=== PATIENT | male | born 1945 | race Caucasian/White ===

== ENCOUNTER 2018-02-23 06:15 | Inpatient (IN) ==
--- NOTE | 2018-02-18 10:09 | Anesthesiology Consultation ---
Date of Service February 18, 2018 Assessment & Plan (1) Encounter for pre-operative examination: Chart Review Chart Review: Acceptable Risk for Surgery and Patient NOT seen in Pre Admission Testing Consults Requested none History Surgery Operation Date: 02/23/18 09:30 Proposed Procedures p Laparoscopic Right Hemicolectomy - Rey Robb DO, FACS Height/Weight Height: 5 ft 10 in Weight: 97.069 kg Allergies Allergy/AdvReac Type Severity Reaction Status Date / Time No Known Allergies Allergy Verified 02/17/18 13:39 Medications Home Medications Medication Instructions Recorded Confirmed Last Taken atorvastatin 40 mg PO QAM 02/17/18 02/17/18 Unknown digoxin 0.125 mg PO QAM 02/17/18 02/17/18 Unknown diltiazem HCl 240 mg PO QPM 02/17/18 02/17/18 Unknown furosemide 20 mg PO QAM 02/17/18 02/17/18 Unknown levothyroxine 75 mcg PO QAM 02/17/18 02/17/18 Unknown lisinopril 40 mg PO QAM 02/17/18 02/17/18 Unknown loratadine 10 mg PO DAILY PRN 02/17/18 02/17/18 Unknown metformin 500 mg PO BID 02/17/18 02/17/18 Unknown metoprolol tartrate 12.5 mg PO BID 02/17/18 02/17/18 Unknown multivitamin 1 tab PO QAM 02/17/18 02/17/18 Unknown warfarin 5 mg PO DAILY 02/17/18 02/17/18 Unknown Past Medical History Medical History Atrial fibrillation Diabetes mellitus, type 2 History of Mohs micrographic surgery for skin cancer left shoulder History of skin cancer left shoulder - melanoma Hx of arteriovenous malformation (AVM) Hyperlipidemia Hypertension Seasonal allergies Stroke 2009 - seen at [facility] and transferd to [facility] Past Family History Family History Aunt Family history of diabetes mellitus Past Surgical History Surgical History History of left hip replacement Hx of brain surgery 2009 - [facility] -Clip AVM Hx of colonoscopy done at [facility] [place] - polyp positive for cancer Social History Smoking Status: Current some day smoker tobacco type: cigars Hx Alcohol Use: Yes alcohol intake frequency: holidays/special occasions only Hx Substance Use: No Testing Electrocardiogram Date: 01/17/18 Findings: + NSST changes and + AFIB @ (RVR at 156/min) Chest X-Ray Chest CT 02/15/18 NAD. No evidence of metatstatic disease. Other Testing 01/26/18 PRP normal. Random glucose 184 Laboratory Results Laboratory Tests 02/16/18 06:51 WBC 12.79 H Hgb 15.9 Hct 47.1 Plt Count 291
[~2018-02-23 06:15] MED LIST: LR 15ML/HR IV SCH; cefOXitin 2,000 MG in DEXTROSE 5% 50 ML IV SCH; cefTRIAXone SODIUM 2,000 MG in DEXTROSE 5% 50 ML IV SCH
[2018-02-23 07:35] LABS: INR 1.1 (0.9-1.1); Partial Thromboplastin Ratio 0.9; Partial Thromboplastin Time 23.8 Seconds (21.0-31.0); Prothrombin Time 10.9 Seconds (9.0-12.0)
[2018-02-23] MEDS ORDERED: PROPOFOL IV EMULSION 10 MG/ML 20 ML VIAL IV ONE (07:58)
[2018-02-23] MEDS ORDERED: ONDANSETRON INJ 2 MG/ML 2 ML VIAL ONE (07:58)
[2018-02-23] MEDS ORDERED: DEXAMETHASONE SOD INJ 4 MG/ML VIAL ONE (07:58)
[2018-02-23] MEDS ORDERED: ROCURONIUM BROMIDE 10 MG/ML 5 ML VIAL ONE ×4 (07:58→10:17)
[2018-02-23] MEDS ORDERED: fentaNYL citrate 100 MCG/2 ML VIAL ONE (07:58)
[2018-02-23] MEDS ORDERED: LIDOCAINE HCL 2% 2 ML VIAL/AMP(20MG/ML) INFIL ONE (07:58)
[2018-02-23] MEDS ORDERED: ONDANSETRON INJ 2 MG/ML 2 ML VIAL IV PRN ×2 (08:13→12:45)
[2018-02-23] MEDS ORDERED: ePHEDrine sulfate 50 MG/ML AMP IV PRN (08:13)
[2018-02-23] MEDS ORDERED: ATROPINE SULFATE 0.1 MG/ML 5ML SYR IV PRN (08:13)
[2018-02-23] MEDS ORDERED: HYDROmorphone INJ 1 MG/ML SYRINGE IV PRN (08:13)
--- NOTE | 2018-02-23 08:21 | History & Physical Bridge Note ---
Date of Service February 23, 2018 History & Physical Bridge Note I have examined the patient, reviewed the History & Physical and in the interval since the performance of the History & Physical I have noted the following changes of clinical significance: no changes noted
[2018-02-23] MEDS ORDERED: BUPIVACAINE LIPOSOME 1.3% 266 MG/20 ML VIAL INFIL ONE (08:24)
[2018-02-23] MEDS ORDERED: BUPIVACAINE 0.5 % 5 MG/1 ML MPF 30ML VIAL ONE (08:24)
[2018-02-23] MEDS ORDERED: ACETAMINOPHEN 1000 MG/100 ML IV IV ONE (08:58)
[2018-02-23] MEDS ORDERED: PHENYLEPHRINE 100MCG/ML 5ML SYR ONE (09:10)
[2018-02-23] MEDS ORDERED: HYDROmorphone INJ 2 MG/ML SYR/VIAL ONE (09:25)
[2018-02-23] MEDS ORDERED: GLYCOPYRROLATE 0.2 MG/ML VIAL ONE ×2 (10:46→10:47)
[2018-02-23] MEDS ORDERED: NEOSTIGMINE METHYLSULFATE 5 MG/5 ML SYR ONE (10:46)
[2018-02-23] MEDS ORDERED: METOPROLOL TARTRATE 1 MG/ML VIAL IV ONE ×2 (10:51→18:15)
--- NOTE | 2018-02-23 11:07 | Post Operative Brief Note ---
Immediate Post Op Note v1 Date of Surgery February 23, 2018 Pre & Post Diagnosis Operation Date: 02/23/18 08:10 Pre-Op Diagnosis: Right Colon Cancer Post-Op Diagnosis: Right Colon Cancer Procedure Operation Date: 02/23/18 08:10 Actual Procedures p Laparoscopic Right Hemicolectomy(Right) - Rey Robb DO, ROHIT Surgeon Rey Robb DO, ROHIT Physical Fitness Trainer Berny Perez PA-C Estimated Blood Loss 20 Findings Consistent with Post-Op Diagnosis Tattoo in cecum, laparoscopic right hemicolectomy performed. Specimens Right hemicolectomy anastamosis Drains Pham Catheter (Inser) Anesthesia Type General Complications none Disposition Accompanied Patient To Recovery: No Disposition: Recovery Room
--- NOTE | 2018-02-23 11:20 | Operative Report ---
Post Operative Report Date of Surgery February 23, 2018 Pre & Post Diagnosis Operation Date: 02/23/18 08:10 Pre-Op Diagnosis: Right Colon Cancer Post-Op Diagnosis: Right Colon Cancer Procedure Operation Date: 02/23/18 08:10 Actual Procedures p Laparoscopic Right Hemicolectomy(Right) - Rey Robb DO, ROHIT Surgeon Rey Robb DO, ROHIT Workers Compensation Examiner Berny Perez PA-C Estimated Blood Loss 20 Findings Consistent with Post-Op Diagnosis Tattoo in cecum, lap scopic right hemicolectomy performed. [id number] functional end-to-end stapled anastomosis performed, reinforced with Lembert's. Specimens Right hemicolectomy Anastomosis Drains None Anesthesia Type General Complications none Disposition Accompanied Patient To Recovery: No Disposition: Recovery Room Indications 73-year-old male with recently diagnosed adenocarcinoma of the cecum, plan for laparoscopic right hemicolectomy. The risks of the procedure were discussed, all questions were answered, and the patient agreed to proceed with surgery as planned. Description of Procedure The patient was properly identified, consented, and taken to the operating room where he was placed in the supine position. General endotracheal anesthesia was induced. SCDs and a safety belt were placed. Preoperative antibiotics were administered. A Pham catheter was placed. The patient's abdomen was prepped and draped in the standard sterile fashion. Surgical timeout was performed and all parties were in agreement that this was the correct patient and procedure to be performed and we continued as planned. A vertical midline supraumbilical incision was made with electrocautery and deepened down to the fascia with blunt dissection. The base of the umbilicus was grasped with a Abbie. There was a small umbilical hernia present that was noted at this time. The Abbie was elevated towards the ceiling and the fascia was incised with a knife. Stay sutures were placed on either side of the midline. The Arslan trocar entry into the peritoneum was confirmed. The Arslan trocar was then placed and the abdomen insufflated with carbon dioxide which the patient tolerated without incident. The laparoscope was inserted and the abdomen inspected. No damage from initial trocar placement was noted. No significant adhesions or other abnormalities were noted. The tattoo was visible in the cecum. Next, 5 mm ports were then placed in the midline just above the pubic symphysis left lower quadrant with care not to damage the epigastric vessels. The patient was placed in Trendelenburg position and the rotated towards the left. The small bowel was swept out of the way. The tattoo was again identified. The cecum was then grasped and elevated towards the abdominal wall exposing the pedicle of the ileocolic artery and vein. The peritoneum just underneath this was incised with electrocautery. Blunt dissection was then used to isolate the vessels along with the use of the harmonic scalpel. The vessels were circumferentially dissected. A 10 loaded 60 mm endoscopic stapler was then used to divide the ileocolic vein and artery at their base. Hemostasis appeared excellent. We then continued the dissection from a medial to lateral approach dissecting the retroperitoneal structures posteriorly away from the small bowel and colonic mesentery. We continued this dissection until we entered the lesser sac and continued laterally until the colon was nearly free of all adhesions except for the white line of Toldt. We then began dissection of the greater omentum off of the transverse colon mesentery. This was performed with blunt dissection and harmonic scalpel. The lesser sac was then entered. Once the medial to lateral dissection was completed, we then performed a lateral dissection using electrocautery and Enseal to take down the white line of Toldt along the right colon. The dissection continued from the distal ileum to the hepatic flexure. Once this was completed, it appeared that the colon and ileum would reach easily to the abdomen, we decided to exteriorize the colon. Laparoscopy was ceased and a midline incision was made around the umbilicus for a length of approximately 7 cm. The wound protector was placed within the wound after the fascia was opened and the colon and small bowel were exteriorized. The small bowel reached easily, but there was some tethering of the right colon. A window was created in the mesentery and the colon was divided with a purple loaded 60 mm stapler. The distal ileum was divided approximately 20 cm from the ileocolic valve. We then completed the resection of the mesentery using the harmonic scalpel. The right colon was still tethered and the GelPort was placed in the rancher laparoscopically and freed some adhesions of the colon to the liver and gallbladder. The colon now reached easily to the abdominal wall and was exteriorized again. A [id number]-ib-[id number] functional end-to-end anastomosis was then created. The small bowel and colon were aligned with care not to twist the mesentery. The antimesenteric corners of the staple line were excised after draping out the abdomen with white towels. The anastomosis was created by 2 sequential firings of the 60 mm purple loaded Endo AMANDA stapler. The common enterotomy was then closed in the prior staple line excised with a purple loaded 60 mm Endo AMANDA stapler. The anastomosis appeared to be widely patent and there did not appear to be any leaks. There was good blood flow at the edge of the staple line. The staple line was then reinforcedwith 3-0 silk Lembert sutures. The anastomosis was then allowed to drop back into the abdomen. The abdomen was then irrigated with warm saline. The fascia was then injected with exparel. We reenter laparoscopically and there appeared to be good hemostasis and the anastomosis appeared viable. The mesenteric defect was not closed. The periumbilical wound protector was removed and the fascia was closed with a # 0 PDS x1. The wound was irrigated and the incision was then closed with coby. Ports were then removed and the abdomen was allowed to collapse. The remaining port sites were closed with coby. Sterile dressings were placed. The patient was extubated in the operating room and taken to the PACU where he recovered without apparent incident. All sponge, instrument, and needle counts were correct. The patient tolerated the procedure well. The colon specimen was sent to Pathology. The physician's diet assistant was present and scrubbed for the entire case. He was critical in positioning the patient, retraction and exposure, driving the laparoscope, creation of the anastomosis, closure of the incisions, and placement of the dressings. I attest to the content of the Intraoperative Record and any orders documented therein. Any exceptions are noted below.
[2018-02-23] MEDS: fentaNYL citrate 100 MCG/2 ML VIAL IV PRN ×2 (11:39→11:45)
--- NOTE | 2018-02-23 12:30 | Anesthesiology Progress Note ---
Date of Service February 23, 2018 Anesthesia Post Procedure Vital Signs Vital Signs: Temp Pulse Pulse Pulse Resp BP BP 02/23/18 12:10 119 H 14 02/23/18 12:09 37.0 C 02/23/18 12:06 135 H 14 133/85 02/23/18 12:05 103 H 12 02/23/18 12:01 102 H 12 135/76 02/23/18 12:00 109 H 12 02/23/18 11:56 103 H 21 136/98 02/23/18 11:55 108 H 20 02/23/18 11:51 100 H 14 142/107 H 02/23/18 11:50 92 H 15 02/23/18 11:46 97 H 17 130/93 02/23/18 11:45 98 H 17 02/23/18 11:43 102 H 19 139/87 02/23/18 11:41 113 H 24 134/100 02/23/18 11:40 117 H 29 H 02/23/18 11:36 108 H 20 142/92 H 02/23/18 11:35 91 H 14 02/23/18 11:31 89 12 139/94 02/23/18 11:30 99 H 13 02/23/18 11:26 106 H 11 L 145/86 H 02/23/18 11:25 86 14 02/23/18 11:21 89 14 130/100 02/23/18 11:20 91 H 13 02/23/18 11:19 88 14 146/90 H 02/23/18 11:18 36.2 C L 92 H 12 146/90 H 02/23/18 06:35 36.4 C L 72 16 128/82 Pulse Ox 02/23/18 12:10 95 02/23/18 12:09 94 02/23/18 12:06 94 02/23/18 12:05 95 02/23/18 12:01 95 02/23/18 12:00 95 02/23/18 11:56 96 02/23/18 11:55 95 02/23/18 11:51 96 02/23/18 11:50 96 02/23/18 11:46 96 02/23/18 11:45 96 02/23/18 11:43 97 02/23/18 11:41 98 02/23/18 11:40 98 02/23/18 11:36 100 02/23/18 11:35 100 02/23/18 11:31 100 02/23/18 11:30 100 02/23/18 11:26 100 02/23/18 11:25 100 02/23/18 11:21 99 02/23/18 11:20 97 02/23/18 11:19 97 02/23/18 11:18 94 02/23/18 06:35 100 Pain Intensity Abdomen: Pain Intensity: 0 Notes Mental Status: alert / awake / arousable and participated in evaluation Patient Amnestic to Procedure: Yes Nausea / Vomiting: adequately controlled Pain: adequately controlled Airway Patency, RR, SpO2: stable & adequate BP & HR: stable & adequate Hydration State: stable & adequate Anesthetic Complications: no major complications apparent and Pt Satisfied with anesthetic care
[2018-02-23] MEDS ORDERED: LACTATED RINGER'S 1,000 ML IV SCH ×2 (12:45→20:30)
[2018-02-23] MEDS ORDERED: ACETAMINOPHEN 1,000 MG/100 ML VIAL IV PRN (12:45)
[2018-02-23] MEDS ORDERED: CARBOHYDRATES FOR HYPOGLYCEMIA PO PRN (12:45)
[2018-02-23] MEDS ORDERED: GLUCOSE 10 TABS/TUBE PO PRN (12:45)
[2018-02-23] MEDS ORDERED: DEXTROSE 50% 50 ML SYRINGE IV PRN (12:45)
[2018-02-23] MEDS ORDERED: GLUCAGON FOR INJ 1 MG VIAL SQ PRN (12:45)
[2018-02-23] MEDS ORDERED: GLUCOSE 40% GEL 15 GM TUBE PO PRN (12:45)
[2018-02-23] MEDS: INSULIN ASPART 100 UNITS/ML 3 ML PEN SC SCH ×3 (12:59→20:48)
[2018-02-23] MEDS: MoRPHine SULFATE 4 MG/ML 1 ML CARP\\VIAL IV PRN ×2 (13:17→16:18)
[2018-02-23] MEDS: cefOXitin 2,000 MG in DEXTROSE 5% 50 ML IV SCH ×3 (14:24→20:45)
--- NOTE | 2018-02-23 14:53 | Consultation ---
Date of Consultation February 23, 2018 Assessment & Plan (1) S/P right hemicolectomy: This is a 73yo M with a PMH of chronic A Fib (on coumadin), HTN, HLD, DM II, CKD III and malignant neoplasm of cecum who is POD#0 s/p R hemicolectomy by Dr. Robb. -Presence of moderately differentiated adenocarcinoma of cecum on routine colonoscopy -Doing well post-operatively -Per general surgery for pain control, wound care and activities -Continue clear liquid diet, per primary team -Monitor H&H (EBL: 20cc), continue incentive spirometry (2) Chronic atrial fibrillation: On coumadin. Held pre-operativelty since 02/18 -HR 91-135 today -Resume home dose Diltiazem and Lopressor this evening, digoxin in AM -Coumadin clinic with instructions to resume 10mg on 02/23 and 02/24 -Bridged with Lovenox 100mg Q12 (last dose in AM on 02/22) -Will discuss resuming anticoagulation with surgical service * No anticoagulation today * Plan to give 40mg SQ Lovenox tomorrow AM -Monitor on telemetry (3) HTN (hypertension): Normotensive -Hold AM Lasix and lisinopril until AM BMP (4) CKD (chronic kidney disease), stage III: Basline Cr ~1, GFR high 50s -Check BMP in AM (5) Dyslipidemia: Resume atorvastatin (6) Diabetes mellitus, type II: A1c of 7.8 in Dec 2017 -Hold metformin -SSI while in-patient -Check BSG ACHS PCP: Mar[facility] Dispo: Per primary service Patient seen in collaboration with Dr. Vera. Please see addendum. Supervising Physician Co-Signing Physician Notes Attending addendum: Patient seen and examined care coordinated with Negra Lo PA-C This is a 73-year-old male with past medical history of chronic A. fib on anticoagulation, stage III CKD, recently diagnosed with adeno CA of cecum after a routine colonoscopy procedure Patient underwent right hemicolectomy procedure today by surgery Patient seen at postop Mention of abdomen being sore, unable to pass any gas yet Postoperative developed rapid A. fib RVR Patient denies of any palpitation, chest heaviness, shortness of breath States that he has chronic A. fib, his baseline heart rate usually 70s-90s Follows with cardiology at [place] Patient's p.o. Cardizem 240 mg given right now, given Lopressor IV 5 mg X 1 dose Lopressor dose increased to 25 p.o. twice daily first dose to be given now Heart rate transiently improved to 100 then continues to climb to 140-130, asymptomatic Continue monitoring telemetry Cardiology consulted Anticoagulation is on hold secondary to recent exploratory laparotomy Will do a stat H&H, chemistry panel check to rule out any evidence of acute blood loss anemia, dehydration Resting echo ordered for a.m. Mercedes Vera MD History of Present Illness Reason for Consultation: Post op medical mgmt Attending Physician: Rey Robb DO, FACS History of Present Illness This is a 73yo M with a PMH of chronic A Fib (on coumadin), HTN, HLD, DM II, CKD III and malignant neoplasm of cecum who is POD#0 s/p R hemicolectomy by Dr. Robb. Underwent a recent routine colonoscopy and was found to have a malignant neoplasm of cecum with a pathology report of moderately differentiated adenocarcinoma. Patient is doing well post-operatively, with a 3/ 10 surgical site pain. Tolerating clear liquid diet without issue. Has history of chronic A Fib and follows with coumadin clinic. Was advised to stop coumadin on 02/18 and resume post-operatively on 02/23. Has been bridging with SQ Lovenox 100mg Q12. Denies any fever, chills, lightheadedness, headache, chest pain, palpitations, shortness of breath, nausea, vomiting, dysuria or lower extremity swelling. Allergies Allergy/AdvReac Type Severity Reaction Status Date / Time No Known Allergies Allergy Verified 02/17/18 13:39 Home Medications Home Medications Medication Instructions Recorded Confirmed Type atorvastatin 40 mg PO QAM 02/17/18 02/23/18 History digoxin 0.125 mg PO QAM 02/17/18 02/23/18 History diltiazem HCl 240 mg PO QPM 02/17/18 02/23/18 History furosemide 20 mg PO QAM 02/17/18 02/23/18 History levothyroxine 75 mcg PO QAM 02/17/18 02/23/18 History lisinopril 40 mg PO QAM 02/17/18 02/23/18 History loratadine 10 mg PO DAILY PRN 02/17/18 02/23/18 History metformin 500 mg PO BID 02/17/18 02/23/18 History metoprolol tartrate 12.5 mg PO BID 02/17/18 02/23/18 History multivitamin 1 tab PO QAM 02/17/18 02/17/18 History warfarin 5 mg PO UD 02/17/18 02/23/18 History enoxaparin 100 mg SUBCUT Q12 02/23/18 02/23/18 History Patient History Medical History CKD (chronic kidney disease), stage III (Chronic) HTN (hypertension) (Chronic) Chronic anticoagulation (Chronic) Chronic atrial fibrillation (Chronic) Dyslipidemia (Chronic) Diabetes mellitus, type II (Chronic) Atrial fibrillation Diabetes mellitus, type 2 History of Mohs micrographic surgery for skin cancer left shoulder History of skin cancer left shoulder - melanoma Hx of arteriovenous malformation (AVM) Hyperlipidemia Hypertension Seasonal allergies Stroke 2009 - seen at [facility] and transferd to [facility] Surgical History H/O brain surgery (Resolved) H/o L frontal craniotomy and AVM resection in 2009 History of left hip replacement (Resolved) History of left hip replacement Hx of brain surgery 2009 - [facility] -Clip AVM Hx of colonoscopy done at [facility] - polyp positive for cancer Family History Aunt Family history of diabetes mellitus Social History Current Living Situation: Spouse Other Information That Helps Us Care for You: No Feels Safe at Home: Yes Safety Concerns: Feels Safe At This Time Smoking Status: Current some day smoker Tobacco Type: cigars Hx Alcohol Use: Yes Alcohol Intake Frequency: holidays/special occasions only Hx Substance Use: No Beliefs That Will Affect Care: None Preferred Language: [place] Communication Ability: Effective Review of Systems Ten systems reviewed and negative except as noted in the HPI. Physical Exam 2 Vital Signs (Past 24 Hours): Last Vital Signs Temp 36.2 C L 02/23/18 13:15 Pulse 110 H 02/23/18 13:15 Resp 14 02/23/18 13:15 BP 125/80 02/23/18 13:15 Pulse Ox 93 02/23/18 13:15 Physical Exam: General Appearance: WD/WN, no apparent distress, eating lunch Head: normocephalic, atraumatic Eyes: normal inspection, PERRL, EOMI ENT: hearing grossly normal, pharynx normal (moist mucous membranes) Neck: supple, no JVD, no adenopathy Respiratory/Chest: lungs clear to auscultation. No wheezes, rales or rhonci. No respiratory distress or accessory muscle use Cardiovascular: irregular rate and rhythm, no murmur, normal peripheral pulses Abdomen/GI: hypoactive bowel sounds, soft, surgical bandage clean, dry, intact. Incision tenderness, no guarding. Extremities/Musculoskelatal: normal inspection, no calf tenderness, normal capillary refill, no pedal edema. +SCDs Neurologic/Psych: alert, normal mood/affect, oriented x 3 Skin: normal color, warm/dry
[2018-02-23] MEDS ORDERED: METOPROLOL TARTRATE 1 MG/ML VIAL IV STA ×2 (18:13→19:40)
[2018-02-23] MEDS: dilTIAZem HCL 240 MG CAPCR PO SCH (18:22)
[2018-02-23] MEDS ORDERED: METOPROLOL TARTRATE 1 MG/ML VIAL IV PRN (18:28)
[2018-02-23 19:20] LABS: Hematocrit (blood only) 44.6 % (42-52); Hemoglobin 15.2 g/dL (14.0-18.0); Mean Corpuscular Volume 88.8 fL (80-100); Mean Platelet Volume 9.7 fL (7.4-10.4); Platelet Count 194 K/uL (130-400); RDW Coefficient of Variation 14.4 % (11.5-14.5); RDW Standard Deviation 46.5 fL (36.4-46.3); Red Blood Count 5.02 M/uL (4.7-6.1); White Blood Count 17.93 K/uL (4.8-10.8)
[2018-02-23 19:22] LABS: Mean Corpuscular Hgb Conc 34.1 g/dL (32-36)
[2018-02-23 19:36] LABS: BUN Creatinine Ratio 14.4 (10-20); Calcium 8.1 mg/dl (8.5-10.1); Creatinine Clr Calc Pharmacy 50.5 ml/min; Est GFR (African American) 53.3; Potassium 4.6 mmol/L (3.5-5.1)
[2018-02-23] MEDS: METOPROLOL TARTRATE 25 MG TAB PO SCH (19:40)
[2018-02-23] MEDS ORDERED: PIPERACILL/TAZOBAC CONSULT ACTIVE PRN (19:44)
[2018-02-23] MEDS ORDERED: PIPERACILLIN/TAZOBACTAM 3.375 GM in DEXTROSE 5% 100 ML IV SCH (19:45)
[2018-02-23] MEDS ORDERED: PIPERACILLIN/TAZOBACTAM 3.375 GM in DEXTROSE 5% 100 ML IV ONE (20:45)
[2018-02-23] MEDS ORDERED: METOPROLOL TARTRATE 25 MG TAB PO SCH ×2 (21:00)
[2018-02-23] MEDS ORDERED: INSULIN GLARGINE SOLOSTAR 100 UNITS/ML 3 ML PEN SC STA (21:26)
[2018-02-23] MEDS ORDERED: PHARMACY GLYCEMIC MGMT CONSULT PRN (21:27)
[2018-02-23] MEDS ORDERED: SODIUM CHLORIDE 0.9% 500 ML IV SCH (22:15)
[2018-02-23] MEDS: SODIUM CHLORIDE 0.9% 1000ML 1,000 ML IV SCH (23:04)
[2018-02-24] MEDS: INSULIN ASPART 100 UNITS/ML 3 ML PEN SC SCH ×6 (00:02→20:17)
[2018-02-24] MEDS: cefOXitin 2,000 MG in DEXTROSE 5% 50 ML IV SCH ×2 (02:59→08:02)
[2018-02-24] MEDS: PIPERACILLIN/TAZOBACTAM 3.375 GM in DEXTROSE 5% 100 ML IV SCH ×2 (02:59→08:53)
[2018-02-24] MEDS: MoRPHine SULFATE 4 MG/ML 1 ML CARP\\VIAL IV PRN ×2 (02:59→11:06)
[2018-02-24 03:47] LABS: Basophils # (auto) 0.01 K/uL (0-0.2); Basophils % (auto) 0.1 %; Hematocrit (blood only) 40.3 % (42-52); Hemoglobin 13.7 g/dL (14.0-18.0); Immature Granulocytes # (auto) 0.05 K/uL (0.00-0.02); Immature Granulocytes % (auto) 0.3 %; Lymphocytes # (auto) 1.33 K/uL (1.2-3.4); Lymphocytes % (auto) 8.8 %; Mean Corpuscular Volume 88.4 fL (80-100); Mean Platelet Volume 9.7 fL (7.4-10.4); Monocytes # (auto) 1.04 K/uL (0.11-0.59); Monocytes % (auto) 6.8 %; Neutrophils # (auto) 12.77 K/uL (1.4-6.5); Platelet Count 195 K/uL (130-400); RDW Coefficient of Variation 14.6 % (11.5-14.5); Red Blood Count 4.56 M/uL (4.7-6.1)
[2018-02-24 04:06] LABS: BUN Creatinine Ratio 11.6 (10-20); Calcium 7.5 mg/dl (8.5-10.1); Creatinine Clr Calc Pharmacy 40.3 ml/min; Est GFR (African American) 40.6; Est GFR (Non-African American) 35.1
[2018-02-24] MEDS: LEVOTHYROXINE SODIUM 75 MCG TABLET PO SCH (05:27)
[2018-02-24 06:35] LABS: Estimated Average Glucose 166 mg/dl
[2018-02-24] MEDS ORDERED: PERFLUTREN LIPID MICROSPHERE (DEFINITY) IV ONE (06:47)
[2018-02-24] MEDS: SODIUM CHLORIDE 0.9% 1000ML 1,000 ML IV SCH ×3 (07:04→20:16)
[2018-02-24] MEDS ORDERED: INSULIN ASPART 100 UNITS/ML 3 ML PEN SC SCH (07:30)
[2018-02-24] MEDS ORDERED: SODIUM CHLORIDE 0.9% 1000ML 500 ML IV ONE (07:53)
--- NOTE | 2018-02-24 07:58 | Surgery Progress Note ---
Date of Service February 24, 2018 Assessment & Plan (1) S/P right hemicolectomy: POD 1 right colectomy, A-fib, CKD, DM, HTN cont clears for now restart coumadin today, keep on Lovenox 40 mg UOP low, Cr 1.8, will give 500 cc bolus Subjective adequate pain control, had morphine once, tolerating clears Physical Exam 2 Vital Signs (Past 24 Hours): Last Vital Signs Temp 36.8 C 02/24/18 07:53 Pulse 88 02/24/18 07:53 Resp 18 02/24/18 07:53 BP 129/75 02/24/18 07:53 Pulse Ox 96 02/24/18 07:53 Gastrointestinal (Abdomen): Inspection/Auscultation: abdomen not distended Percussion/Palpation: abdomen soft
[2018-02-24] MEDS: METOPROLOL TARTRATE 25 MG TAB PO SCH ×2 (08:05→20:18)
[2018-02-24] MEDS ORDERED: ENOXAPARIN INJ 40 MG/0.4 ML SYR SQ SCH (09:00)
[2018-02-24] MEDS ORDERED: DIGOXIN 0.125 MG TAB PO SCH (09:00)
[2018-02-24] MEDS ORDERED: INSULIN GLARGINE SOLOSTAR 100 UNITS/ML 3 ML PEN SC SCH (09:00)
--- NOTE | 2018-02-24 10:34 | Pharmacy Report ---
Glycemic Control Consultation - Date of Service February 24, 2018 - Scope Scope: Glycemic Pharmacist consulted by Dr Vera on 02/23/18 for glycemic control and to write orders per [facility] inpatient glycemic control protocol - Objective Weight: 97.9 kg Accuchecks BSG (last 24hrs): 02/23/18 02/23/18 02/23/18 11:20 16:19 19:00 Glucose 290 H POC Glucose 179 H 203 H 02/23/18 02/23/18 02/24/18 20:13 23:59 03:40 Glucose 145 H POC Glucose 266 H 229 H 02/24/18 02/24/18 04:33 07:27 Glucose POC Glucose 132 H 142 H Laboratory Data (last 24hrs): 02/23/18 02/24/18 19:00 03:40 Potassium 4.6 4.0 Carbon Dioxide 28 Anion Gap 8.0 6.0 Creatinine 1.47 H 1.84 H D Est Cr Clr Drug Dosing 50.5 40.3 HbA1c: Hemoglobin A1c 7.4 % (4.5-5.6) H 02/24/18 03:40 - Recent Pertinent Medications Outpatient Anti-diabetic Regimen: * metformin 500 mg PO BIDM * A1c = 7.4 % 02/24/18 The patient is currently receiving: * Basal insulin: Lantus 30 units x1 given last evening * Correctional Insulin: Novolog Correction per scale ACHS Goal Range: Low 110 mg/dL - High 140 mg/dL Correction Factor: 15 mg/dL/unit * Prandial insulin: Per carb ratio of 1 unit per 6 grams CHO consumed Risk Factors for Insulin Resistance: * Steroids: Dexamethasone 4 mg IV given 02/23 in OR * Recent Surgery: R hemicolectomy * Diet: clear liquids - Assessment & Plan Assessment & Plan: ASSESSMENT: * 73 yr old T2DM male with adenocarcinoma of cecum POD #1 s/p right hemicolectomy * Patient is maintained on metformin at home. Oral agents were held for surgery and patient was started on SQ basal + bolus insulin * Fasting BSG of 142 mg/dL is near goal. Lukas received a dose of 30 units of Lantus last evening. I will decrease dose to 15 units this AM since steroid effect is wearing off. Will re-evaluate further need for basal insulin on 02/25 AM. * Post prandial BSGs were elevated yesterday, therefore Novolog parameters were tightened to weight/stress 3. I anticipate improvement today and will likely need to loosen parameters later today. PLAN FOR INPATIENT GLYCEMIC CONTROL: * Holding outpatient oral diabetes medications * Basal insulin * Lantus 15 units SQ this morning * Evaluate further need for basal on 02/25 * Bolus insulin * NovoLog per scale ACHS or Q6hrs while NPO * Goal Range: Low 110 mg/dL - High 140 mg/dL * Correction Factor: 15 mg/dL/unit * Nutritional / Prandial insulin per carb ratio of 1 unit per 6 grams CHO consumed * Please note that the plan above was derived based on current level of insulin resistance and hospital stress. These recommendations are appropriate for inpatient admission only. Plan of care upon discharge will need to be reassessed to avoid potential outpatient hypo/hyperglycemia. Thank you.
--- NOTE | 2018-02-24 10:44 | Anesthesiology Progress Note ---
Date of Service February 24, 2018 Anesthesia Post Procedure Vital Signs Vital Signs: Temp Pulse Pulse Pulse Pulse Resp BP 02/24/18 07:53 36.8 C 88 18 02/24/18 04:26 36.4 C L 85 18 02/23/18 23:24 36.6 C 93 H 20 02/23/18 22:04 36.4 C L 130 H 02/23/18 19:34 36.7 C 97 H 18 02/23/18 18:05 145 H 81 02/23/18 15:47 36.3 C L 82 20 02/23/18 15:42 37.0 C 62 18 02/23/18 13:15 36.2 C L 110 H 14 02/23/18 12:45 36.3 C L 87 16 02/23/18 12:30 36.2 C L 91 H 16 02/23/18 12:10 119 H 14 02/23/18 12:09 37.0 C 02/23/18 12:06 135 H 14 133/85 02/23/18 12:05 103 H 12 02/23/18 12:01 102 H 12 135/76 02/23/18 12:00 109 H 12 02/23/18 11:56 103 H 21 136/98 02/23/18 11:55 108 H 20 02/23/18 11:51 100 H 14 142/107 H 02/23/18 11:50 92 H 15 02/23/18 11:46 97 H 17 130/93 02/23/18 11:45 98 H 17 02/23/18 11:43 102 H 19 139/87 02/23/18 11:41 113 H 24 134/100 02/23/18 11:40 117 H 29 H 02/23/18 11:36 108 H 20 142/92 H 02/23/18 11:35 91 H 14 02/23/18 11:31 89 12 139/94 02/23/18 11:30 99 H 13 02/23/18 11:26 106 H 11 L 145/86 H 02/23/18 11:25 86 14 02/23/18 11:21 89 14 130/100 02/23/18 11:20 91 H 13 02/23/18 11:19 88 14 146/90 H 02/23/18 11:18 36.2 C L 92 H 12 BP BP Pulse Ox 02/24/18 07:53 129/75 96 02/24/18 04:26 105/61 93 02/23/18 23:24 101/69 94 02/23/18 22:04 99/61 L 02/23/18 19:34 108/70 93 02/23/18 18:05 115/59 L 02/23/18 15:47 135/68 94 02/23/18 15:42 137/73 96 02/23/18 13:15 125/80 93 02/23/18 12:45 126/73 94 02/23/18 12:30 143/83 H 95 02/23/18 12:10 95 02/23/18 12:09 94 02/23/18 12:06 94 02/23/18 12:05 95 02/23/18 12:01 95 02/23/18 12:00 95 02/23/18 11:56 96 02/23/18 11:55 95 02/23/18 11:51 96 02/23/18 11:50 96 02/23/18 11:46 96 02/23/18 11:45 96 02/23/18 11:43 97 02/23/18 11:41 98 02/23/18 11:40 98 02/23/18 11:36 100 02/23/18 11:35 100 02/23/18 11:31 100 02/23/18 11:30 100 02/23/18 11:26 100 02/23/18 11:25 100 02/23/18 11:21 99 02/23/18 11:20 97 02/23/18 11:19 97 02/23/18 11:18 146/90 H 94 Pain Intensity Abdomen: Pain Intensity: 5 Notes Mental Status: alert / awake / arousable and participated in evaluation Patient Amnestic to Procedure: Yes Nausea / Vomiting: adequately controlled Pain: adequately controlled Airway Patency, RR, SpO2: stable & adequate BP & HR: stable & adequate Hydration State: stable & adequate Anesthetic Complications: no major complications apparent and Pt Satisfied with anesthetic care
[2018-02-24] MEDS ORDERED: OXYCODONE HCL IR 5 MG TAB (IMMEDIATE RELEASE) PO PRN (13:05)
--- NOTE | 2018-02-24 13:32 | Cardiology Consultation ---
Date of Consultation February 24, 2018 Assessment & Plan (1) Chronic atrial fibrillation with rapid ventricular response: Patient has a history of chronic atrial fibrillation on 3 drug regimen for rate control and appropriate anticoagulation given past history of TIA, elevated chads vasc 2 score Atrial fibrillation rates were elevated postoperatively due to basis of volume shifts pain sedation etc. Status has improved with fluid resuscitation no signs of overt bleeding rates under better control today Agree with increase in metoprolol would continue usual preoperative medications and continue bridge anticoagulation resumption as previously arranged. Follow- up with primary business administration professor post hospital discharge We will sign off contact with any question History of Present Illness Reason for Consultation: Atrial fibrillation with elevated ventricular response rate Requesting Physician: Dr. Vera Attending Physician: Rey Robb DO, FACS History of Present Illness Patient is a 73-year-old male followed by [facility] cardiology for history of chronic atrial fibrillation. He is remained on rate control along number years with chronic anticoagulation following past TIA. Notes no other history of structural heart disease angina or congestive heart failure. Carries a history of class III renal insufficiency, hypertension, diabetes mellitus, type 2, dyslipidemia Patient presents this admission and underwent laparoscopic colectomy for colon carcinoma. He was noted in recovery phase to have elevated heart rate response to chronic atrial fibrillation medications were adjusted at that time with patient given fluid resuscitation as well as increased beta-klarissa IV and oral. He is referred now for further evaluation. Patient today on resuming oral medications has had good rate control notes no cardiac complaints. Notes no dizziness leading syncope near syncope has moderate bowel discomfort as expected. Urine outputs had decreased but now are improving after fluid resuscitation. Notes no bleeding difficulties notes no fevers chills or sweats. Denies prior history of rheumatic fever scarlet fever. Does follow routinely with cardiology. Exercise capacity remains unchanged no acute complaints prior to surgical intervention. Follows with [facility] clinic Allergies Allergy/AdvReac Type Severity Reaction Status Date / Time No Known Allergies Allergy Verified 02/17/18 13:39 Home Medications Home Medications Medication Instructions Recorded Confirmed Type atorvastatin 40 mg PO QAM 02/17/18 02/23/18 History digoxin 0.125 mg PO QAM 02/17/18 02/23/18 History diltiazem HCl 240 mg PO QPM 02/17/18 02/23/18 History furosemide 20 mg PO QAM 02/17/18 02/23/18 History levothyroxine 75 mcg PO QAM 02/17/18 02/23/18 History lisinopril 40 mg PO QAM 02/17/18 02/23/18 History loratadine 10 mg PO DAILY PRN 02/17/18 02/23/18 History metformin 500 mg PO BID 02/17/18 02/23/18 History metoprolol tartrate 12.5 mg PO BID 02/17/18 02/23/18 History multivitamin 1 tab PO QAM 02/17/18 02/17/18 History warfarin 5 mg PO UD 02/17/18 02/23/18 History enoxaparin 100 mg SUBCUT Q12 02/23/18 02/23/18 History Patient History Medical History CKD (chronic kidney disease), stage III (Chronic) HTN (hypertension) (Chronic) Chronic anticoagulation (Chronic) Chronic atrial fibrillation (Chronic) Dyslipidemia (Chronic) Diabetes mellitus, type II (Chronic) Atrial fibrillation Diabetes mellitus, type 2 History of Mohs micrographic surgery for skin cancer left shoulder History of skin cancer left shoulder - melanoma Hx of arteriovenous malformation (AVM) Hyperlipidemia Hypertension Seasonal allergies Stroke 2009 - seen at [facility] and transferd to [facility] Surgical History H/O brain surgery (Resolved) H/o L frontal craniotomy and AVM resection in 2009 History of left hip replacement (Resolved) History of left hip replacement Hx of brain surgery 2009 - [facility] -Clip AVM Hx of colonoscopy done at [facility] - polyp positive for cancer Family History Aunt Family history of diabetes mellitus Social History Current Living Situation: Spouse Other Information That Helps Us Care for You: No Feels Safe at Home: Yes Safety Concerns: Feels Safe At This Time Smoking Status: Current some day smoker Tobacco Type: cigars Hx Alcohol Use: Yes Alcohol Intake Frequency: holidays/special occasions only Hx Substance Use: No Beliefs That Will Affect Care: None Communication Ability: Effective Review of Systems As per HPI and otherwise negative Physical Exam 2 Vital Signs (Past 24 Hours): Last Vital Signs Temp 37.0 C 12/27/18 12:01 Pulse 80 02/24/18 12:01 Resp 18 02/24/18 12:01 BP 131/73 02/24/18 12:01 Pulse Ox 96 02/24/18 12:01 Constitutional: + obese; no acute distress ENMT: external ear and nose normal, oropharynx normal Neck: + thick neck Thyroid: normal thyroid Cardiovascular: Heart Sounds: normal S1 and normal S2; no gallop Vessels: femoral pulses present and radial pulses present; no femoral bruit Extremities: no edema Irregularly irregular Gastrointestinal (Abdomen): Inspection/Auscultation: + hypoactive bowel sounds Percussion/Palpation: abdomen soft Musculoskeletal: no cyanosis or clubbing, extremities motor strength 5/5 Results & Data Laboratory Results Laboratory Results - last 24 hr 02/23/18 02/23/18 02/23/18 16:19 19:00 19:01 WBC 17.93 H RBC 5.02 Hgb 15.2 Hct 44.6 MCV 88.8 MCH 30.3 MCHC 34.1 RDW Std Deviation 46.5 H RDW Coeff of Carly 14.4 Plt Count 194 MPV 9.7 Immature Gran % (Auto) Neut % (Auto) Lymph % (Auto) [place] % (Auto) Eos % (Auto) Baso % (Auto) Immature Gran # (Auto) Neut # (Auto) Lymph # (Auto) [place] # (Auto) Eos # (Auto) Baso # (Auto) Sodium 139 Potassium 4.6 Chloride 103 Carbon Dioxide 28 Anion Gap 8.0 BUN 21 H Creatinine 1.47 H Est Cr Clr Drug Dosing 50.5 Est GFR ( Amer) 53.3 Est GFR (Non-Af Amer) 46.0 BUN/Creatinine Ratio 14.4 Glucose 290 H POC Glucose 203 H Estimat Average Glucose Hemoglobin A1c Lactate Calcium 8.1 L 02/23/18 02/23/18 02/23/18 20:13 21:04 23:59 WBC RBC Hgb Hct MCV MCH MCHC RDW Std Deviation RDW Coeff of Carly Plt Count MPV Immature Gran % (Auto) Neut % (Auto) Lymph % (Auto) [place] % (Auto) Eos % (Auto) Baso % (Auto) Immature Gran # (Auto) Neut # (Auto) Lymph # (Auto) [place] # (Auto) Eos # (Auto) Baso # (Auto) Sodium Potassium Chloride Carbon Dioxide Anion Gap BUN Creatinine Est Cr Clr Drug Dosing Est GFR ( Amer) Est GFR (Non-Af Amer) BUN/Creatinine Ratio Glucose POC Glucose 266 H 229 H Estimat Average Glucose Hemoglobin A1c Lactate 4.1 H* Calcium 02/24/18 02/24/18 02/24/18 03:40 03:40 03:40 WBC 15.20 H RBC 4.56 L Hgb 13.7 L Hct 40.3 L MCV 88.4 MCH 30.0 MCHC 34.0 RDW Std Deviation 47.0 H RDW Coeff of Carly 14.6 H Plt Count 195 MPV 9.7 Immature Gran % (Auto) 0.3 Neut % (Auto) 84.0 Lymph % (Auto) 8.8 [place] % (Auto) 6.8 Eos % (Auto) 0.0 Baso % (Auto) 0.1 Immature Gran # (Auto) 0.05 H Neut # (Auto) 12.77 H Lymph # (Auto) 1.33 [place] # (Auto) 1.04 H Eos # (Auto) 0.00 Baso # (Auto) 0.01 Sodium 139 Potassium 4.0 Chloride 106 Carbon Dioxide 27 Anion Gap 6.0 BUN 21 H Creatinine 1.84 H D Est Cr Clr Drug Dosing 40.3 Est GFR ( Amer) 40.6 Est GFR (Non-Af Amer) 35.1 BUN/Creatinine Ratio 11.6 Glucose 145 H POC Glucose Estimat Average Glucose 166 Hemoglobin A1c 7.4 H Lactate Calcium 7.5 L 02/24/18 02/24/18 02/24/18 03:40 04:33 07:27 WBC RBC Hgb Hct MCV MCH MCHC RDW Std Deviation RDW Coeff of Carly Plt Count MPV Immature Gran % (Auto) Neut % (Auto) Lymph % (Auto) [place] % (Auto) Eos % (Auto) Baso % (Auto) Immature Gran # (Auto) Neut # (Auto) Lymph # (Auto) [place] # (Auto) Eos # (Auto) Baso # (Auto) Sodium Potassium Chloride Carbon Dioxide Anion Gap BUN Creatinine Est Cr Clr Drug Dosing Est GFR ( Amer) Est GFR (Non-Af Amer) BUN/Creatinine Ratio Glucose POC Glucose 132 H 142 H Estimat Average Glucose Hemoglobin A1c Lactate 1.7 Calcium 02/24/18 11:19 WBC RBC Hgb Hct MCV MCH MCHC RDW Std Deviation RDW Coeff of Carly Plt Count MPV Immature Gran % (Auto) Neut % (Auto) Lymph % (Auto) [place] % (Auto) Eos % (Auto) Baso % (Auto) Immature Gran # (Auto) Neut # (Auto) Lymph # (Auto) [place] # (Auto) Eos # (Auto) Baso # (Auto) Sodium Potassium Chloride Carbon Dioxide Anion Gap BUN Creatinine Est Cr Clr Drug Dosing Est GFR ( Amer) Est GFR (Non-Af Amer) BUN/Creatinine Ratio Glucose POC Glucose 170 H Estimat Average Glucose Hemoglobin A1c Lactate Calcium ECG Additional Comments: Atrial fibrillation with controlled ventricular response rate nonspecific ST flattening downsloping lateral leads without significant change from prior
[2018-02-24] MEDS: ACETAMINOPHEN 1,000 MG/100 ML VIAL IV SCH ×2 (13:35→22:58)
[2018-02-24] MEDS: DIGOXIN 0.125 MG TAB PO SCH (15:35)
[2018-02-24] MEDS: WARFARIN SOD 5 MG TAB PO SCH (15:36)
--- NOTE | 2018-02-24 18:09 | Hospitalist Progress Note ---
Date of Service February 24, 2018 Assessment & Plan (1) S/P right hemicolectomy: This is a 73yo M with a PMH of chronic A Fib (on coumadin), HTN, HLD, DM II, CKD III dx with malignant neoplasm of cecum (adeno CA ) POD#1 s/p R hemicolectomy by Dr. Robb. - -Doing well post-operatively -tolerating clears post op pain well controlled increase activity as tolerated further management as per surgery (2) Chronic atrial fibrillation: On coumadin. Held pre-operativelty since 02/18 -on lovenox bridge developed post op rapid afib RVR possible due to post op vol loss given IVF home dose Diltiazem and Lopressor digoxin resumed HR improved to 70-90's chronic afib -Monitor on telemetry (3) HTN (hypertension): BP remains stable given IV fluid for post op dehydration resume BP meds including diuretics (4) CKD (chronic kidney disease), stage III: Basline Cr ~1, GFR high 50s - (5) Dyslipidemia: Resume atorvastatin (6) Diabetes mellitus, type II: A1c of 7.8 in Dec 2017 - -SSI while in-patient -Check BSG ACHS PCP: Dr Rodríguez at [facility] Dispo: Per primary service Subjective HR remains stable rate controlled Afib has minimal pain in abdomen surgical site has been OOB , walking in hallway unable to pass gas /no BM yet vitals remains stable no fever or chills Physical Exam 2 Vital Signs (Past 24 Hours): Last Vital Signs Temp 36.1 C L 02/24/18 15:45 Pulse 74 02/24/18 15:45 Resp 16 02/24/18 15:45 BP 121/75 02/24/18 15:45 Pulse Ox 98 02/24/18 15:45 Constitutional: WD/WN, vitals as above no acute distress Eyes: + anicteric sclerae ENMT: external ear and nose normal, oropharynx normal Neck: trachea midline, no thyromegaly Respiratory: normal respiratory effort, lungs clear to auscultation Cardiovascular: Rate/Rhythm: + abnormal rate and + abnormal rhythm (chronic afib /rate controlled ) Gastrointestinal (Abdomen): Inspection/Auscultation: + abdominal surgical incision ( mid abdomen surgical incision : well approximated , no drainage , no erythema ) Percussion/Palpation: abdomen soft; abdomen nontender Musculoskeletal: no cyanosis or clubbing, extremities motor strength 5/5 Skin: no rashes, warm and dry Neurologic: PERRL, EOMI, accommodation nl, no face palsy, no dysarthria Psychiatric: A+Ox3, euthymic affect
[2018-02-24] MEDS: OXYCODONE HCL IR 5 MG TAB (IMMEDIATE RELEASE) PO PRN ×2 (18:39→23:57)
[2018-02-24] MEDS: dilTIAZem HCL 240 MG CAPCR PO SCH (20:18)
[2018-02-25] MEDS: SODIUM CHLORIDE 0.9% 1000ML 1,000 ML IV SCH (03:48)
[2018-02-25] MEDS: ACETAMINOPHEN 1,000 MG/100 ML VIAL IV SCH (05:39)
[2018-02-25] MEDS: OXYCODONE HCL IR 5 MG TAB (IMMEDIATE RELEASE) PO PRN ×2 (05:42→11:58)
[2018-02-25] MEDS: LEVOTHYROXINE SODIUM 75 MCG TABLET PO SCH (05:43)
[2018-02-25] MEDS ORDERED: HEPARIN SOD 5,000 UNIT/0.5 ML VIAL SQ SCH (06:00)
[2018-02-25] MEDS: METOPROLOL TARTRATE 25 MG TAB PO SCH ×2 (07:20→21:07)
[2018-02-25 07:34] LABS: Basophils # (auto) 0.01 K/uL (0-0.2); Basophils % (auto) 0.1 %; Eosinophils # (auto) 0.02 K/uL (0-0.5); Eosinophils % (auto) 0.2 %; Hemoglobin 13.6 g/dL (14.0-18.0); Immature Granulocytes # (auto) 0.04 K/uL (0.00-0.02); Immature Granulocytes % (auto) 0.3 %; Lymphocytes # (auto) 1.47 K/uL (1.2-3.4); Lymphocytes % (auto) 11.8 %; Mean Corpuscular Hgb Conc 33.2 g/dL (32-36); Mean Corpuscular Volume 89.9 fL (80-100); Mean Platelet Volume 9.9 fL (7.4-10.4); Monocytes # (auto) 0.85 K/uL (0.11-0.59); Monocytes % (auto) 6.8 %; Neutrophils # (auto) 10.12 K/uL (1.4-6.5); Neutrophils % (auto) 80.8 %; Platelet Count 187 K/uL (130-400); RDW Coefficient of Variation 14.7 % (11.5-14.5); RDW Standard Deviation 47.6 fL (36.4-46.3); Red Blood Count 4.56 M/uL (4.7-6.1); White Blood Count 12.51 K/uL (4.8-10.8)
[2018-02-25] MEDS: INSULIN ASPART 100 UNITS/ML 3 ML PEN SC SCH ×4 (07:43→21:03)
[2018-02-25 07:46] LABS: INR 1.1 (0.9-1.1); Prothrombin Time 11.4 Seconds (9.0-12.0)
[2018-02-25 08:21] LABS: BUN Creatinine Ratio 11.5 (10-20); Calcium 8.2 mg/dl (8.5-10.1); Creatinine Clr Calc Pharmacy 79.7 ml/min; Est GFR (African American) 91.6; Potassium 4.1 mmol/L (3.5-5.1)
--- NOTE | 2018-02-25 08:35 | Surgery Progress Note ---
Date of Service February 25, 2018 Assessment & Plan (1) S/P right hemicolectomy: POD 2 right colectomy, A-fib, CKD, DM, HTN continue full liquids coumadin 5 mg daily, Lovenox held due to CKD, elevated Cr, and risk of postop bleeding Cr normalized today, decrease IVF will discuss anticogulation with Dr. Robb transfer to floor when ok with med/card Supervising Physician Co-Signing Physician Notes Pnt S&E, agree with above. CR and uo improved, no flatus or bm but tolerating liquids, non nausea. Abd soft, nd, appropriately ttp. advance to low residual diet restart lovenox continue coumadin d/c when return of bowel function Dr. Damon covering over weekend Subjective pain when getting OOB, no nausea, no flatus, tolerated full liquids Physical Exam 2 Vital Signs (Past 24 Hours): Last Vital Signs Temp 36.6 C 02/25/18 07:17 Pulse 98 H 02/25/18 07:17 Resp 16 02/25/18 07:17 BP 153/92 H 02/25/18 07:17 Pulse Ox 94 02/25/18 07:17 Gastrointestinal (Abdomen): Inspection/Auscultation: + abdominal surgical incision (clean, dry); abdomen not distended Percussion/Palpation: abdomen soft
[2018-02-25] MEDS ORDERED: OXYCODONE/ACETAMINOPHEN 5mg/325mg TAB PO PRN (12:00)
[2018-02-25] MEDS: ENOXAPARIN INJ 40 MG/0.4 ML SYR SQ SCH ×2 (12:55→22:04)
[2018-02-25] MEDS: LISINOPRIL 40 MG TAB PO SCH (12:56)
[2018-02-25] MEDS: ATORVASTATIN 40 MG TAB PO SCH (12:56)
[2018-02-25] MEDS: FUROSEMIDE 20 MG TAB PO SCH (12:56)
--- NOTE | 2018-02-25 16:35 | Hospitalist Progress Note ---
Date of Service February 25, 2018 Assessment & Plan (1) S/P right hemicolectomy: This is a 73yo M with a PMH of chronic A Fib (on coumadin), HTN, HLD, DM II, CKD III dx with malignant neoplasm of cecum (adeno CA ) POD# 3 s/p R hemicolectomy by Dr. Robb. - -Doing well post-operatively vitals remains stable pt is transferred to medical /surgical floor post op pain well controlled increase activity as tolerated further management as per surgery (2) Chronic atrial fibrillation: developed post op rapid afib RVR possible due to post op vol loss home dose Diltiazem and Lopressor digoxin resumed HR improved to 70-90's chronic afib On coumadin. Held pre-operativelty since 02/18 -on lovenox bridge (3) HTN (hypertension): BP remains stable given IV fluid for post op dehydration resume BP meds including diuretics (4) Acute kidney failure: due to Ex laparotomy , fluid /vol loss history of CKD III. Creatinine 1.0 mg/dl per outpatient records. Serum creatinine to 1.84 mg/dl on 02/24, improved with IVF to 0.94 mg/dl on 02/25. (5) CKD (chronic kidney disease), stage III: Baseline Cr ~1, GFR high 50s developed Acute kidney injury post op resolved after IV hydration - (6) Dyslipidemia: Resume atorvastatin (7) Diabetes mellitus, type II: A1c of 7.8 in Dec 2017 - -SSI while in-patient -Check BSG ACHS PCP: Dr Rodríguez at [facility] (formerly [facility] Dispo: Per primary service Subjective offers no complain abdominal pain minimum HR remains stable t transferred to medical floor Physical Exam 2 Vital Signs (Past 24 Hours): Last Vital Signs Temp 36.3 C L 02/25/18 15:14 Pulse 83 02/25/18 15:14 Resp 20 02/25/18 15:14 BP 137/93 02/25/18 15:14 Pulse Ox 97 02/25/18 15:14 Constitutional: WD/WN, vitals as above no acute distress Eyes: + anicteric sclerae ENMT: external ear and nose normal, oropharynx normal Neck: trachea midline, no thyromegaly Respiratory: normal respiratory effort, lungs clear to auscultation Cardiovascular: Rate/Rhythm: + abnormal rate and + abnormal rhythm (chronic afib /rate controlled ) Gastrointestinal (Abdomen): Inspection/Auscultation: + abdominal surgical incision ( mid abdomen surgical incision : well approximated , no drainage , no erythema ) Percussion/Palpation: abdomen soft; abdomen nontender Musculoskeletal: no cyanosis or clubbing, extremities motor strength 5/5 Skin: no rashes, warm and dry Neurologic: PERRL, EOMI, accommodation nl, no face palsy, no dysarthria Psychiatric: A+Ox3, euthymic affect _ (1) Acute kidney failure Acute renal failure type: unspecified Qualified Code(s): N17.9 - Acute kidney failure, unspecified (2) Diabetes mellitus, type II Chronic kidney disease stage: stage 3 (moderate) Diabetes mellitus complication detail: with chronic kidney disease Diabetes mellitus complication status: with kidney complications Diabetes mellitus nursing home insulin use: unspecified nursing home insulin use status Qualified Code(s): E11.22 - Type 2 diabetes mellitus with diabetic chronic kidney disease; N18.3 - Chronic kidney disease, stage 3 (moderate) (3) HTN (hypertension) Hypertension type: unspecified Qualified Code(s): I10 - Essential (primary) hypertension
[2018-02-25] MEDS: WARFARIN SOD 5 MG TAB PO SCH (17:59)
[2018-02-25] MEDS: DIGOXIN 0.125 MG TAB PO SCH (18:00)
[2018-02-25] MEDS: OXYCODONE/ACETAMINOPHEN 5mg/325mg TAB PO PRN (19:14)
[2018-02-25] MEDS: dilTIAZem HCL 240 MG CAPCR PO SCH (21:06)
[2018-02-26] MEDS: OXYCODONE/ACETAMINOPHEN 5mg/325mg TAB PO PRN ×3 (00:49→14:11)
[2018-02-26] MEDS: LEVOTHYROXINE SODIUM 75 MCG TABLET PO SCH (06:09)
[2018-02-26 06:19] LABS: Basophils # (auto) 0.01 K/uL (0-0.2); Basophils % (auto) 0.1 %; Eosinophils # (auto) 0.07 K/uL (0-0.5); Eosinophils % (auto) 0.7 %; Hematocrit (blood only) 41.6 % (42-52); Hemoglobin 13.8 g/dL (14.0-18.0); Immature Granulocytes # (auto) 0.02 K/uL (0.00-0.02); Immature Granulocytes % (auto) 0.2 %; Lymphocytes # (auto) 1.67 K/uL (1.2-3.4); Lymphocytes % (auto) 16.7 %; Mean Corpuscular Hgb Conc 33.2 g/dL (32-36); Mean Corpuscular Volume 89.7 fL (80-100); Mean Platelet Volume 9.7 fL (7.4-10.4); Monocytes # (auto) 0.76 K/uL (0.11-0.59); Monocytes % (auto) 7.6 %; Neutrophils % (auto) 74.7 %; Platelet Count 171 K/uL (130-400); RDW Coefficient of Variation 14.5 % (11.5-14.5); Red Blood Count 4.64 M/uL (4.7-6.1); White Blood Count 10.03 K/uL (4.8-10.8)
[2018-02-26 06:26] LABS: INR 1.3 (0.9-1.1); Prothrombin Time 12.5 Seconds (9.0-12.0)
[2018-02-26 06:53] LABS: BUN Creatinine Ratio 11.2 (10-20); Creatinine Clr Calc Pharmacy 87.1 ml/min; Est GFR (African American) 98.3; Est GFR (Non-African American) 84.8; Potassium 3.7 mmol/L (3.5-5.1)
[2018-02-26] MEDS: METOPROLOL TARTRATE 25 MG TAB PO SCH ×2 (07:32→20:12)
[2018-02-26] MEDS: LISINOPRIL 40 MG TAB PO SCH (07:33)
[2018-02-26] MEDS: ATORVASTATIN 40 MG TAB PO SCH (07:33)
[2018-02-26] MEDS: ENOXAPARIN INJ 40 MG/0.4 ML SYR SQ SCH ×2 (07:34→20:12)
[2018-02-26] MEDS: FUROSEMIDE 20 MG TAB PO SCH (07:35)
--- NOTE | 2018-02-26 08:19 | Surgery Progress Note ---
Date of Service February 26, 2018 Assessment & Plan (1) S/P right hemicolectomy: -await bowel function -taking diet fairly well -good pain control -incisions look good Present on Admission?: No Subjective Constitutional: no fever, no chills and no anorexia Cardiovascular: no chest pain Gastrointestinal: + abdominal pain (mild); no nausea and no vomiting small amount of flatus Physical Exam 2 Vital Signs (Past 24 Hours): Last Vital Signs Temp 36.5 C 02/26/18 06:53 Pulse 98 H 02/26/18 06:53 Resp 19 02/26/18 06:53 BP 154/91 H 02/26/18 06:53 Pulse Ox 98 02/26/18 06:53 Constitutional: no acute distress Neck: trachea midline, no thyromegaly Respiratory: normal respiratory effort, lungs clear to auscultation Cardiovascular: RRR, no murmur, no edema Gastrointestinal (Abdomen): Inspection/Auscultation: normal bowel sounds; abdomen not distended Percussion/Palpation: + abdomen tender (mild) and abdomen soft Skin: no rashes, warm and dry
[2018-02-26] MEDS: INSULIN ASPART 100 UNITS/ML 3 ML PEN SC SCH ×4 (09:18→23:44)
[2018-02-26] MEDS ORDERED: OXYCODONE/ACETAMINOPHEN 5mg/325mg TAB PO PRN (13:50)
[2018-02-26] MEDS: DIGOXIN 0.125 MG TAB PO SCH (15:29)
[2018-02-26] MEDS: WARFARIN SOD 5 MG TAB PO SCH (15:29)
--- NOTE | 2018-02-26 15:59 | Hospitalist Progress Note ---
Date of Service February 26, 2018 Assessment & Plan (1) Acute abdominal pain: Developed diffuse abdominal pain after breakfast Constant 8 out of 10, Associated with nausea, no vomiting Not able to pass gas or have any bowel movement since surgery Concern for possible postop ileus versus obstruction Order for stat CT abdomen pelvis without contrast Patient will be kept n.p.o. including meds Ordered IV fluids Surgery team updated Present on Admission?: No (2) S/P right hemicolectomy: This is a 73yo M with a PMH of chronic A Fib (on coumadin), HTN, HLD, DM II, CKD III dx with malignant neoplasm of cecum (adeno CA ) POD# 4 s/p R hemicolectomy by Dr. Robb. Pathology: Shows moderately differentiated adeno CA - Patient was advanced to solid diet by surgery, Had no pain or discomfort yesterday, Developed acute abdominal pain earlier this morning Management as outlined above (3) Chronic atrial fibrillation: At present rate and rhythm controlled Diltiazem and Lopressor digoxin resumed HR improved to 70-90's chronic afib Was started on Coumadin Kept on hold for acute abdominal pain (4) HTN (hypertension): BP remains stable (5) Acute kidney failure: due to Ex laparotomy , fluid /vol loss history of CKD III. Creatinine 1.0 mg/dl per outpatient records. Serum creatinine to 1.84 mg/dl on 02/24, improved with IVF to 0.94 mg/dl on 02/25. (6) CKD (chronic kidney disease), stage III: Baseline Cr ~1, GFR high 50s developed Acute kidney injury post op resolved after IV hydration - (7) Dyslipidemia: Hold statins (8) Diabetes mellitus, type II: A1c of 7.8 in Dec 2017 - -SSI while in-patient -Check BSG ACHS PCP: Dr Rodríguez at [facility] Dispo: Expect to be discharged home when medically stable Continue postop management as per primary team Subjective Patient complains of diffuse Abdominal pain 8 out of 10, feels like severe gaseous distention, associated with nausea, no vomiting Mentions that he has not been able to pass any gas since surgery No bowel movement Ordered for stat CT abdomen pelvis without contrast Keep patient n.p.o. Surgery updated Physical Exam 2 Vital Signs (Past 24 Hours): Last Vital Signs Temp 36.4 C L 02/26/18 15:04 Pulse 85 12/29/18 15:04 Resp 20 02/26/18 15:04 BP 160/91 H 02/26/18 15:04 Pulse Ox 96 02/26/18 15:04 Constitutional: + acute distress (Due to abdominal pain) Eyes: + anicteric sclerae ENMT: external ear and nose normal, oropharynx normal Neck: trachea midline, no thyromegaly Respiratory: normal respiratory effort, lungs clear to auscultation Cardiovascular: Rate/Rhythm: + abnormal rate and + abnormal rhythm (chronic afib /rate controlled ) Gastrointestinal (Abdomen): Inspection/Auscultation: + abdomen distended, + abdominal surgical incision ( mid abdomen surgical incision : well approximated , no drainage , no erythema ) and + hypoactive bowel sounds Percussion/ Palpation: + abdomen tender Musculoskeletal: no cyanosis or clubbing, extremities motor strength 5/5 Skin: no rashes, warm and dry Neurologic: PERRL, EOMI, accommodation nl, no face palsy, no dysarthria Psychiatric: Orientation: alert and oriented x 3 _ (1) HTN (hypertension) Hypertension type: unspecified Qualified Code(s): I10 - Essential (primary) hypertension (2) Acute kidney failure Acute renal failure type: unspecified Qualified Code(s): N17.9 - Acute kidney failure, unspecified (3) Diabetes mellitus, type II Diabetes mellitus 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
--- NOTE | 2018-02-26 16:18 | CT Scan Report ---
ABDOMEN AND PELVIS CT WITHOUT CONTRAST CT DOSE: 933.96 mGy.cm HISTORY: Generalized abdominal PAIN /S/P SURGERY /RULE OUT obstruction TECHNIQUE: Multiaxial CT images of the abdomen and pelvis were performed without contrast. A dose lo wering technique was utilized adhering to the principles of ALARA. COMPARISON STUDY: Abdomen and pelvis CT 02/16/2018. FINDINGS: Bilateral low linear densities favor subsegmental atelectasis. Small amount of pneumoperito neum. There has been interval midline incision with skin coby. Therefore, the pneumoperitoneum or recent postoperative change. Punctate focus of gas within the bladder lumen is likely due to prior ca theterization. There is a left total hip arthroplasty. Bilateral L5 spondylolysis with associated gra de II spondylolisthesis. No suspicious lytic or blastic osseous lesions. Mild body wall edema. Small fat-containing bilateral inguinal hernias. Trace fluid within the right lower quadrant. No bladder wa ll thickening. The unenhanced liver, gallbladder, pancreas, spleen, and adrenal glands are unremarkab le. No renal stones or hydronephrosis. Mild bilateral perinephric edema. No retroperitoneal lymphaden opathy. No loculated fluid collections to suggest an abscess. Interval right hemicolectomy with ileoc olic anastomosis. Mild fast stranding adjacent to the anastomosis which is likely due to the recent p ostoperative change. Colonic diverticulosis. No evidence for diverticulitis. Gas and fluid-filled col on. The descending colon, transverse colon, and descending colon are mildly dilated. No transition po int to suggest a bowel obstruction. Questionable mild thickening of the transverse colon with minimal pericolonic fat stranding. IMPRESSION: 1. Mildly dilated gas and fluid-filled ascending colon, transverse colon, and descending colon. No tr ansition point to suggest a bowel obstruction. Therefore, this favors an ileus. 2. There is suggestion of mild bowel wall thickening of the transverse colon which may represent a irwin perimposed mild colitis. 3. Small amount of pneumoperitoneum. This is likely result of the recent right hemicolectomy. 4. Additional findings as described above. Electronically signed by: Tae Daugherty M.D. 02/26/2018 4:16 PM
[2018-02-26] MEDS: MoRPHine SULFATE 4 MG/ML 1 ML CARP\\VIAL IV PRN ×2 (16:29→20:42)
[2018-02-26] MEDS: LACTATED RINGER'S 1,000 ML IV SCH (16:30)
[2018-02-26] MEDS: CIPROFLOXACIN 400 MG/200 ML BAG IV SCH (18:06)
[2018-02-26] MEDS: metroNIDAZOLE 500 MG/100 ML BAG IV SCH (18:06)
[2018-02-26] MEDS ORDERED: Nursing to Pharmacy Communication ONE (19:04)
[2018-02-26] MEDS: dilTIAZem HCL 240 MG CAPCR PO SCH (20:12)
[2018-02-27] MEDS: metroNIDAZOLE 500 MG/100 ML BAG IV SCH ×3 (03:00→18:13)
[2018-02-27] MEDS: LEVOTHYROXINE SODIUM 75 MCG TABLET PO SCH (05:51)
[2018-02-27] MEDS: CIPROFLOXACIN 400 MG/200 ML BAG IV SCH ×2 (05:52→18:13)
[2018-02-27] MEDS: LACTATED RINGER'S 1,000 ML IV SCH ×2 (05:57→21:07)
[2018-02-27] MEDS: INSULIN ASPART 100 UNITS/ML 3 ML PEN SC SCH ×4 (05:59→21:24)
[2018-02-27] MEDS: MoRPHine SULFATE 4 MG/ML 1 ML CARP\\VIAL IV PRN ×5 (06:26→23:25)
[2018-02-27 06:52] LABS: INR 1.5 (0.9-1.1); Prothrombin Time 14.9 Seconds (9.0-12.0)
[2018-02-27] MEDS: ENOXAPARIN INJ 40 MG/0.4 ML SYR SQ SCH ×2 (08:39→21:20)
[2018-02-27] MEDS: METOPROLOL TARTRATE 25 MG TAB PO SCH ×2 (08:40→21:18)
[2018-02-27] MEDS: LISINOPRIL 40 MG TAB PO SCH (08:40)
--- NOTE | 2018-02-27 09:00 | Surgery Progress Note ---
Date of Service February 27, 2018 Assessment & Plan (1) S/P right hemicolectomy: -severe pain yesterday with normal post-op CT scan -pain much improved -good BM last night -begin fulls again -good pain control -incisions look good Subjective Constitutional: no fever and no chills Gastrointestinal: + abdominal pain (much improved after passing gas and BM) Physical Exam 2 Vital Signs (Past 24 Hours): Last Vital Signs Temp 36.7 C 02/27/18 07:59 Pulse 89 02/27/18 07:59 Resp 17 02/27/18 07:59 BP 149/81 H 02/27/18 07:59 Pulse Ox 94 02/27/18 07:59 Constitutional: WD/WN, vitals as above Respiratory: normal respiratory effort, lungs clear to auscultation Cardiovascular: RRR, no murmur, no edema Gastrointestinal (Abdomen): Inspection/Auscultation: + abdomen distended ( improved) and normal bowel sounds Percussion/Palpation: + abdomen tender ( mild) and abdomen soft passing flatus and BM last night Results & Data Diagnostic Findings BDOMEN AND PELVIS CT WITHOUT CONTRAST CT DOSE: 933.96 mGy.cm HISTORY: Generalized abdominal PAIN /S/P SURGERY /RULE OUT obstruction TECHNIQUE: Multiaxial CT images of the abdomen and pelvis were performed without contrast. A dose lowering technique was utilized adhering to the principles of ALARA. COMPARISON STUDY: Abdomen and pelvis CT 02/16/2018. FINDINGS: Bilateral low linear densities favor subsegmental atelectasis. Small amount of pneumoperitoneum. There has been interval midline incision with skin cboy. Therefore, the pneumoperitoneum or recent postoperative change. Punctate focus of gas within the bladder lumen is likely due to prior catheterization. There is a left total hip arthroplasty. Bilateral L5 spondylolysis with associated grade II spondylolisthesis. No suspicious lytic or blastic osseous lesions. Mild body wall edema. Small fat-containing bilateral inguinal hernias. Trace fluid within the right lower quadrant. No bladder wall thickening. The unenhanced liver, gallbladder, pancreas, spleen, and adrenal glands are unremarkable. No renal stones or hydronephrosis. Mild bilateral perinephric edema. No retroperitoneal lymphadenopathy. No loculated fluid collections to suggest an abscess. Interval right hemicolectomy with ileocolic anastomosis. Mild fast stranding adjacent to the anastomosis which is likely due to the recent postoperative change. Colonic diverticulosis. No evidence for diverticulitis. Gas and fluid-filled colon. The descending colon, transverse colon, and descending colon are mildly dilated. No transition point to suggest a bowel obstruction. Questionable mild thickening of the transverse colon with minimal pericolonic fat stranding. IMPRESSION: 1. Mildly dilated gas and fluid-filled ascending colon, transverse colon, and descending colon. No transition point to suggest a bowel obstruction. Therefore , this favors an ileus. 2. There is suggestion of mild bowel wall thickening of the transverse colon which may represent a superimposed mild colitis. 3. Small amount of pneumoperitoneum. This is likely result of the recent right hemicolectomy. 4. Additional findings as described above.
--- NOTE | 2018-02-27 09:21 | Pharmacy Report ---
Glycemic Control Progress Note - Date of Service February 27, 2018 - Scope Glycemic Pharmacist consulted for glycemic control to write orders per [facility] inpatient glycemic control protocol. - Objective Accuchecks BSG(last 24 hours):: 02/26/18 02/26/18 02/26/18 11:59 17:05 23:43 POC Glucose 127 H 160 H 149 H 02/27/18 05:50 POC Glucose 138 H HbA1c:: Hemoglobin A1c 7.4 % (4.5-5.6) H 02/24/18 03:40 - Recent Pertinent Medications The patient is currently receiving: * Basal insulin: Lantus 0 units every 24 hours * Correctional Insulin: Novolog Correction per scale ACHS Goal Range: Low 110 mg/dL - High 140 mg/dL Correction Factor: 20 mg/dL/unit * Prandial insulin: Per carb ratio of 1 unit per 8 grams CHO consumed - Outpatient Anti-Diabetic Meds METFORMIN 500 MG po BIDM - Assessment & Plan ASSESSMENT: * See progress note from 02/24/18 for more background info, in short: * Pt receiving SQ basal bolus insulin regimen for hyperglycemia secondary to baseline DM (outpatient regimen on hold), POD 4 from hemicolectomy now on ciprofloxacin/metronidazole, and currently NPO. * Patient is currently receiving an average of 6 units of insulin per day * 0 units of basal insulin * 6 units of prandial/correctional insulin * BSGs ranging 127 - 160 mg/dl over the past 24hrs * Changes needed to insulin regimen: * AM Fasting BSG = 138 mg/dl. This is in goal range for patient based on inpatient targets and co-morbidities. Therefore Basal insulin will continue to be held especially in light of patient's NPO status. * Post-prandial BSGs are in range therefore no changes needed to CF/CR. * Total daily dose = < 10 units while NPO. * Additional notes / comments: Patient on metformin hold while NPO. PLAN FOR INPATIENT GLYCEMIC CONTROL: * HOLD Lantus * Continuing correction factor of 30 mg/dl/unit * Continuing carb ratio of 1 unit per 8 grams CHO consumed * Continuing goal range to Low 110 mg/dL - High 140 mg/dL RECOMMENDATIONS FOR DISCHARGE: * Patient's HbA1C is well controlled. Continue home regimen once able to tolerate PO. * Please note that the plan above was derived based on current level of insulin resistance and hospital stress. These recommendations are appropriate for inpatient admission only. Plan of care upon discharge will need to be reassessed to avoid potential outpatient hypo/hyperglycemia. Thank you.
[2018-02-27] MEDS: WARFARIN SOD 5 MG TAB PO SCH (16:20)
[2018-02-27] MEDS: DIGOXIN 0.125 MG TAB PO SCH (16:21)
--- NOTE | 2018-02-27 18:10 | Hospitalist Progress Note ---
Date of Service February 27, 2018 Assessment & Plan (1) Adynamic ileus: Developed postop, with abdominal distention, pain, unable to pass gas, symptoms resolved after IV fluids bowel rest, appreciate input from GI, patient able to (2) Acute abdominal pain: Secondary to illeus Symptom has resolved, patient able to pass gas, abdominal pain has improved markedly, started on liquid diet by surgery (3) S/P right hemicolectomy: This is a 73yo M with a PMH of chronic A Fib (on coumadin), HTN, HLD, DM II, CKD III dx with malignant neoplasm of cecum (adeno CA ) POD# 5 s/p R hemicolectomy by Dr. Robb. Pathology: Shows moderately differentiated adeno CA - Patient was advanced to solid diet by surgery, Had no pain or discomfort yesterday, Developed acute abdominal pain earlier this morning Management as outlined above (4) Chronic atrial fibrillation: At present rate and rhythm controlled Diltiazem and Lopressor digoxin resumed HR improved to 70-90's chronic afib Was started on Coumadin Kept on hold for acute abdominal pain (5) HTN (hypertension): BP remains stable (6) Acute kidney failure: due to Ex laparotomy , fluid /vol loss history of CKD III. Creatinine 1.0 mg/dl per outpatient records. Serum creatinine to 1.84 mg/dl on 02/24, improved with IVF to 0.94 mg/dl on 02/25. (7) CKD (chronic kidney disease), stage III: Baseline Cr ~1, GFR high 50s developed Acute kidney injury post op resolved after IV hydration - (8) Dyslipidemia: Hold statins (9) Diabetes mellitus, type II: A1c of 7.8 in Dec 2017 - -SSI while in-patient -Check BSG ACHS PCP: Dr Rodríguez at [facility] [place] Dispo: Expect to be discharged home when medically stable Continue postop management as per primary team Subjective Able to pass gas, no nausea vomiting, diet advanced tolerating well Physical Exam 2 Vital Signs (Past 24 Hours): Last Vital Signs Temp 36.6 C 02/27/18 15:06 Pulse 90 02/27/18 16:21 Resp 16 02/27/18 15:06 BP 135/94 02/27/18 15:06 Pulse Ox 95 02/27/18 15:06 Constitutional: WD/WN, vitals as above + acute distress (Due to abdominal pain) Eyes: + anicteric sclerae ENMT: external ear and nose normal, oropharynx normal Neck: trachea midline, no thyromegaly Respiratory: normal respiratory effort, lungs clear to auscultation Cardiovascular: Rate/Rhythm: + abnormal rate and + abnormal rhythm (chronic afib /rate controlled ) Gastrointestinal (Abdomen): Inspection/Auscultation: + abdomen distended, + abdominal surgical incision ( mid abdomen surgical incision : well approximated , no drainage , no erythema ) and + hypoactive bowel sounds Percussion/ Palpation: + abdomen tender and abdomen soft Musculoskeletal: no cyanosis or clubbing, extremities motor strength 5/5 Skin: no rashes, warm and dry Neurologic: PERRL, EOMI, accommodation nl, no face palsy, no dysarthria Psychiatric: A+Ox3, euthymic affect Orientation: alert and oriented x 3 _ (1) Acute kidney failure Acute renal failure type: unspecified Qualified Code(s): N17.9 - Acute kidney failure, unspecified (2) Diabetes mellitus, type II Chronic kidney disease stage: stage 3 (moderate) Diabetes mellitus complication detail: with chronic kidney disease Diabetes mellitus complication status: with kidney complications Diabetes mellitus residential insulin use: unspecified residential insulin use status Diabetes mellitus macular edema: Diabetic retinopathy severity: Laterality: Proliferative retinopathy type: Qualified Code(s): E11.22 - Type 2 diabetes mellitus with diabetic chronic kidney disease; N18.3 - Chronic kidney disease, stage 3 ( moderate) (3) HTN (hypertension) Hypertension type: unspecified Qualified Code(s): I10 - Essential (primary) hypertension
[2018-02-27] MEDS: dilTIAZem HCL 240 MG CAPCR PO SCH (21:18)
[2018-02-27] MEDS ORDERED: Nursing to Pharmacy Communication ONE (21:29)
[2018-02-28] MEDS: metroNIDAZOLE 500 MG/100 ML BAG IV SCH ×3 (01:55→18:29)
[2018-02-28] MEDS: CIPROFLOXACIN 400 MG/200 ML BAG IV SCH ×2 (05:41→19:55)
[2018-02-28] MEDS: LEVOTHYROXINE SODIUM 75 MCG TABLET PO SCH (05:42)
[2018-02-28] MEDS: MoRPHine SULFATE 4 MG/ML 1 ML CARP\\VIAL IV PRN ×2 (05:42→08:09)
[2018-02-28 06:45] LABS: Hematocrit (blood only) 42.1 % (42-52); Hemoglobin 14.2 g/dL (14.0-18.0); Mean Corpuscular Hgb Conc 33.7 g/dL (32-36); Mean Corpuscular Volume 88.1 fL (80-100); Mean Platelet Volume 9.6 fL (7.4-10.4); Platelet Count 180 K/uL (130-400); RDW Coefficient of Variation 14.2 % (11.5-14.5); RDW Standard Deviation 45.8 fL (36.4-46.3); Red Blood Count 4.78 M/uL (4.7-6.1); White Blood Count 9.35 K/uL (4.8-10.8)
[2018-02-28 07:09] LABS: Creatinine Clr Calc Pharmacy 83.2 ml/min; Est GFR (African American) 96.5; Est GFR (Non-African American) 83.3
[2018-02-28] MEDS: METOPROLOL TARTRATE 25 MG TAB PO SCH ×2 (08:05→21:59)
[2018-02-28] MEDS: ENOXAPARIN INJ 40 MG/0.4 ML SYR SQ SCH (08:06)
[2018-02-28] MEDS: LISINOPRIL 40 MG TAB PO SCH (08:06)
[2018-02-28] MEDS: INSULIN ASPART 100 UNITS/ML 3 ML PEN SC SCH ×4 (09:20→22:01)
--- NOTE | 2018-02-28 09:26 | Surgery Progress Note ---
Addendum entered and electronically signed by Berny Perez Jr, PA-C 10:13: Addendum (Blank) Addendum February 28, 2018 10:12 INR 2.6, will d/c Lovenox Original Note: Date of Service February 28, 2018 Assessment & Plan (1) S/P right hemicolectomy: POD 5 right colectomy, A-fib, CKD, DM, HTN continue full liquids for today resume po analgesics INR pending Supervising Physician Co-Signing Physician Notes Pnt S&E, agree with above. Increased pain over weekend, CT unremarkable. Multiple bm's and passing flatus, now feeling much better. tolerating fulls. INR therapeutic. Will advance to low fiber diet as tolerated. Possible d/c tomorrow if doing well. Dr. Padron covering. Subjective less bloated, multiple BMs + flatus starting Sat night Physical Exam 2 Vital Signs (Past 24 Hours): Last Vital Signs Temp 36.7 C 02/28/18 07:25 Pulse 66 02/28/18 07:25 Resp 16 02/28/18 07:25 BP 147/81 H 02/28/18 07:25 Pulse Ox 95 02/28/18 07:25 Gastrointestinal (Abdomen): Inspection/Auscultation: + abdomen distended (mild ) and + abdominal surgical incision (clean, dry)
[2018-02-28 09:54] LABS: INR 2.6 (0.9-1.1); Prothrombin Time 25.3 Seconds (9.0-12.0)
[2018-02-28] MEDS ORDERED: INSULIN GLARGINE SOLOSTAR 100 UNITS/ML 3 ML PEN SC ONE (10:00)
--- NOTE | 2018-02-28 10:05 | Pharmacy Report ---
Pharmacy Glycemic Short Note 2 - Date of Service February 28, 2018 - Glycemic Short BSG Results (Last 24 hours): 02/27/18 02/27/18 02/27/18 11:51 17:00 21:07 POC Glucose 172 H 197 H 215 H 02/28/18 08:19 POC Glucose 168 H OUTPATIENT ANTIDIABETIC REGIMEN: Metformin 500 mg BID A1c 7.4% on 02/24 ASSESSMENT: 02/28 * Mr. Soto is now POD 5 s/p R hemicolectomy * BSGs are starting to increase with diet being advanced; fasting = 168 mg/dL; postprandial BSGs all above goal yesterday * I'm hesitant to restart metformin just yet since diet has just been resumed. Will instead initiate basal insulin between 0.15 and 0.2 units/kg. Hesitant to be too aggressive since he was quite responsive to previous basal dosing Will also tighten CR slightly. 02/27 * Pt receiving SQ basal bolus insulin regimen for hyperglycemia secondary to baseline DM (outpatient regimen on hold), POD 4 from hemicolectomy now on ciprofloxacin/metronidazole, and currently NPO. * Patient is currently receiving an average of 6 units of insulin per day * 0 units of basal insulin * 6 units of prandial/correctional insulin * BSGs ranging 127 - 160 mg/dl over the past 24hrs * Changes needed to insulin regimen: * AM Fasting BSG = 138 mg/dl. This is in goal range for patient based on inpatient targets and co-morbidities. Therefore Basal insulin will continue to be held especially in light of patient's NPO status. * Post-prandial BSGs are in range therefore no changes needed to CF/CR. * Total daily dose = < 10 units while NPO. * Additional notes / comments: Patient on metformin hold while NPO. PLAN FOR INPATIENT GLYCEMIC CONTROL: * Continue to hold outpatient oral diabetes medications until diet back to normal * Basal insulin * Lantus 10 units x 1 now, then * Lantus BID per the following scale: * 5 units for BSG 140 or less * 10 units for BSG > 140 * Bolus insulin * NovoLog per scale ACHS or Q6hrs while NPO * Goal Range: Low 110 mg/dL - High 140 mg/dL * Correction Factor: 20 mg/dL/unit * Nutritional / Prandial insulin per carb ratio of 1 unit per 7 grams CHO consumed PLAN FOR DISCHARGE: * A1c indicates good outpatient control * Resume metformin on discharge
[2018-02-28] MEDS: DIGOXIN 0.125 MG TAB PO SCH (15:25)
[2018-02-28] MEDS: WARFARIN SOD 5 MG TAB PO SCH (15:26)
--- NOTE | 2018-02-28 18:18 | Hospitalist Progress Note ---
Date of Service February 28, 2018 Assessment & Plan (1) Acute abdominal pain: Resolved having bowel movement, able to pass gas, diet advanced to solid tolerating well Secondary to illeus Symptom has resolved, p (2) S/P right hemicolectomy: This is a 73yo M with a PMH of chronic A Fib (on coumadin), HTN, HLD, DM II, CKD III dx with malignant neoplasm of cecum (adeno CA ) POD# 6 s/p R hemicolectomy by Dr. Robb. Pathology: Shows moderately differentiated adeno CA - Patient was advanced to solid diet by surgery, Had no pain or discomfort yesterday, Operative recovery good complicated secondary to ileus, symptoms resolved with conservative management only, having bowel movement, tolerating diet, medically remained stable (3) Chronic atrial fibrillation: At present rate and rhythm controlled Diltiazem and Lopressor digoxin resumed HR improved to 70-90's chronic afib Continue on Coumadin (4) HTN (hypertension): BP remains stable (5) Acute kidney failure: due to Ex laparotomy , fluid /vol loss history of CKD III. Creatinine 1.0 mg/dl per outpatient records. Serum creatinine to 1.84 mg/dl on 02/24, improved with IVF to 0.94 mg/dl on 02/25. (6) CKD (chronic kidney disease), stage III: Baseline Cr ~1, GFR high 50s developed Acute kidney injury post op resolved after IV hydration - (7) Dyslipidemia: Hold statins (8) Diabetes mellitus, type II: A1c of 7.8 in Dec 2017 - -SSI while in-patient -Check BSG ACHS PCP: Dr Rodríguez at [facility] [place] Dispo: Expect to be discharged home when medically stable Continue postop management as per primary team (9) Adynamic ileus: Developed postop, with abdominal distention, pain, unable to pass gas, symptoms resolved after IV fluids bowel rest, Surgery updated Symptom has completely resolved, able to a bowel movement, tolerating solid Patient remained stable Continue management as per surgery Subjective Had bowel movement earlier today, tolerating solid food, no nausea vomiting Vitals remain stable, evaluated by surgery team, possible discharge home tomorrow Physical Exam 2 Vital Signs (Past 24 Hours): Last Vital Signs Temp 36.9 C 02/28/18 15:12 Pulse 99 H 02/28/18 15:25 Resp 18 02/28/18 15:12 BP 120/75 02/28/18 15:12 Pulse Ox 94 02/28/18 15:12 Constitutional: WD/WN, vitals as above + acute distress (Due to abdominal pain) Eyes: + anicteric sclerae ENMT: external ear and nose normal, oropharynx normal Neck: trachea midline, no thyromegaly Respiratory: normal respiratory effort, lungs clear to auscultation Cardiovascular: Rate/Rhythm: + abnormal rate and + abnormal rhythm (chronic afib /rate controlled ) Gastrointestinal (Abdomen): Inspection/Auscultation: + abdomen distended, + abdominal surgical incision ( mid abdomen surgical incision : well approximated , no drainage , no erythema ) and + hypoactive bowel sounds Percussion/ Palpation: + abdomen tender and abdomen soft Musculoskeletal: no cyanosis or clubbing, extremities motor strength 5/5 Skin: no rashes, warm and dry Neurologic: PERRL, EOMI, accommodation nl, no face palsy, no dysarthria Psychiatric: A+Ox3, euthymic affect Orientation: alert and oriented x 3 _ (1) Acute kidney failure Acute renal failure type: unspecified Qualified Code(s): N17.9 - Acute kidney failure, unspecified (2) Diabetes mellitus, type II Chronic kidney disease stage: stage 3 (moderate) Diabetes mellitus complication detail: with chronic kidney disease Diabetes mellitus complication status: with kidney complications Diabetes mellitus 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
[2018-02-28] MEDS: OXYCODONE/ACETAMINOPHEN 5mg/325mg TAB PO PRN (18:27)
[2018-02-28] MEDS: dilTIAZem HCL 240 MG CAPCR PO SCH (21:59)
[2018-02-28] MEDS: INSULIN GLARGINE SOLOSTAR 100 UNITS/ML 3 ML PEN SC SCH (22:03)
[2018-03-01] MEDS: metroNIDAZOLE 500 MG/100 ML BAG IV SCH ×2 (02:34→10:36)
[2018-03-01] MEDS: CIPROFLOXACIN 400 MG/200 ML BAG IV SCH (05:42)
[2018-03-01] MEDS: LEVOTHYROXINE SODIUM 75 MCG TABLET PO SCH (05:42)
[2018-03-01 06:29] LABS: Prothrombin Time 35.5 Seconds (9.0-12.0)
[2018-03-01 06:49] LABS: INR 3.8 (0.9-1.1)
[2018-03-01] MEDS: METOPROLOL TARTRATE 25 MG TAB PO SCH ×2 (08:00→20:45)
[2018-03-01] MEDS: LISINOPRIL 40 MG TAB PO SCH (08:01)
[2018-03-01] MEDS: INSULIN ASPART 100 UNITS/ML 3 ML PEN SC SCH ×4 (08:41→20:33)
[2018-03-01] MEDS: INSULIN GLARGINE SOLOSTAR 100 UNITS/ML 3 ML PEN SC SCH ×2 (08:42→20:46)
--- NOTE | 2018-03-01 12:16 | Surgery Progress Note ---
Date of Service March 01, 2018 pt feels better, no nausea, no vomiting, good control abdominal pain, passed gas , no BM yet. Assessment & Plan (1) S/P right hemicolectomy: -severe pain yesterday with normal post-op CT scan -pain much improved -good BM last night -begin fulls again -good pain control -incisions look good 03/01/201812:15pm doing better, passed gas no nausea, no vomiting, continue treatment will F/U Subjective Gastrointestinal: + abdominal pain (much improved after passing gas and BM) Physical Exam 2 Vital Signs (Past 24 Hours): Last Vital Signs Temp 36.6 C 03/01/18 07:05 Pulse 88 03/01/18 07:05 Resp 16 03/01/18 07:05 BP 125/82 03/01/18 07:05 Pulse Ox 96 03/01/18 07:05 Constitutional: WD/WN, vitals as above Neck: trachea midline, no thyromegaly Respiratory: normal respiratory effort, lungs clear to auscultation Cardiovascular: RRR, no murmur, no edema Gastrointestinal (Abdomen): normal bowel sounds, soft, nontender, no hepatosplenomegaly some distend, BS + all incisions intact Neurologic: awake Psychiatric: Orientation: alert and oriented x 3 Results & Data Laboratory Results Abnormal lab results 02/28/18 02/28/18 02/28/18 Range/Units 11:57 17:11 20:51 PT (9.0-12.0) Seconds INR (0.9-1.1) POC Glucose 165 H 104 H 203 H (70-99) 03/01/18 03/01/18 Range/Units 05:48 08:13 PT 35.5 H (9.0-12.0) Seconds INR 3.8 H (0.9-1.1) POC Glucose 124 H (70-99)
[2018-03-01] MEDS: WARFARIN SOD 5 MG TAB PO SCH (16:12)
[2018-03-01] MEDS: DIGOXIN 0.125 MG TAB PO SCH (16:15)
[2018-03-01] MEDS: dilTIAZem HCL 240 MG CAPCR PO SCH (20:44)
[2018-03-01] MEDS ORDERED: CIPROFLOXACIN 500 MG TAB PO SCH (21:00)
[2018-03-01] MEDS ORDERED: metroNIDAZOLE 500 MG TAB PO SCH (21:00)
[2018-03-01] MEDS: OXYCODONE/ACETAMINOPHEN 5mg/325mg TAB PO PRN (21:04)
[2018-03-02 02:47] LABS: Appearance Urine Clear (Clear); Bilirubin Urine Negative (Negative); Color Urine Yellow; Glucose Urine UA Negative (Negative); Ketones Urine Negative (Negative); Leukocyte Esterase Urine Negative (Negative); Nitrite Urine Negative (Negative); Protein Urine Negative (Negative); Specific Gravity Urine 1.011 (1.000-1.030); Urobilinogen Urine Negative (Negative); pH Urine 6.5 (4.5-7.5)
[2018-03-02] MEDS: LEVOTHYROXINE SODIUM 75 MCG TABLET PO SCH (05:56)
[2018-03-02 07:27] LABS: INR 3.1 (0.9-1.1); Prothrombin Time 29.4 Seconds (9.0-12.0)
[2018-03-02 07:31] VITALS: BP 154/99; PULSE 80; TEMP 98.2; O2SAT 97
--- NOTE | 2018-03-02 08:10 | Surgery Progress Note ---
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 Tolerated low fiber diet yesterday, passing gas and having loose bm's. Pain controlled, would like to go home. Physical Exam 2 Vital Signs (Past 24 Hours): Last Vital Signs Temp 36.8 C 03/02/18 07:29 Pulse 80 03/02/18 07:29 Resp 17 03/02/18 07:29 BP 154/99 H 03/02/18 07:29 Pulse Ox 97 03/02/18 07:29 Constitutional: WD/WN, vitals as above no acute distress Gastrointestinal (Abdomen): incisions with coby, no e/o infection. Soft, ND, NT. Results & Data Laboratory Results Laboratory Results - last 24 hr 03/01/18 03/01/18 03/01/18 08:13 12:02 17:31 PT INR POC Glucose 124 H 121 H 136 H Urine Color Urine Appearance Urine pH Ur Specific Duson Urine Protein Urine Glucose (UA) Urine Ketones Urine Blood Urine Nitrite Urine Bilirubin Urine Urobilinogen Ur Leukocyte Esterase 03/01/18 03/02/18 03/02/18 20:31 01:35 06:42 PT 29.4 H INR 3.1 H POC Glucose 124 H Urine Color Yellow Urine Appearance Clear Urine pH 6.5 Ur Specific [place]on 1.011 Urine Protein Negative Urine Glucose (UA) Negative Urine Ketones Negative Urine Blood Negative Urine Nitrite Negative Urine Bilirubin Negative Urine Urobilinogen Negative Ur Leukocyte Esterase Negative
[2018-03-02] MEDS: METOPROLOL TARTRATE 25 MG TAB PO SCH (09:16)
[2018-03-02] MEDS: LISINOPRIL 40 MG TAB PO SCH (09:16)
[2018-03-02] MEDS: INSULIN GLARGINE SOLOSTAR 100 UNITS/ML 3 ML PEN SC SCH (09:19)
[2018-03-02] MEDS: INSULIN ASPART 100 UNITS/ML 3 ML PEN SC SCH (09:20)
[2018-03-02] MEDS: FUROSEMIDE 20 MG TAB PO SCH (09:52)
[2018-03-02] MEDS: OXYCODONE/ACETAMINOPHEN 5mg/325mg TAB PO PRN (11:06)
--- NOTE | 2018-03-02 19:16 | Discharge Summary ---
PRIMARY DISCHARGE DIAGNOSES: 1. Right colon cancer. 2. Postoperative ileus. 3. Chronic kidney disease. 4. Chronic atrial fibrillation. 5. Hypertension. 6. Dyslipidemia. PROCEDURE PERFORMED: Laparoscopic right hemicolectomy. CONSULTATIONS: 1. [facility] hospitalist to assist in medical management. 2. [facility] Cardiology for chronic atrial fibrillation. HOSPITAL COURSE: The patient is a 73-year-old male with right colon cancer taken to the operating room for laparoscopic colectomy. Procedure was well tolerated. He had [place] [facility] We held his Lovenox on the day of surgery on postoperative day #1, started him on heparin due to rise in his creatinine along with risk of postoperative bleeding. His creatinine was 1.8. His blood sugars were covered with sliding scale insulin. Hospitalist was consulted routinely and cardiology was also consulted routinely. By day #2, his creatinine had normalized and Lovenox was resumed. His diet was advanced as tolerated. He had some bloating and nausea over the weekend once he began a regular diet. His CT scan showed some dilated bowel loops overall consistent with an ileus. By day #4, he was having increasing flatus and began moving his bowels. By day #5, he was less distended. He was able to resume an advancing diet. His INR was 2.6 and Lovenox was discontinued. He continued to increase diet and activity on postoperative day #6 and on day #7 was stable for discharge home. His abdomen was soft. His incision was clean and dry. DISCHARGE INSTRUCTIONS: Discharge home. Follow up with Dr. Robb' office within 1 week for removal of skin coby. He has outpatient followup with cardiology within the next week as well. DISCHARGE MEDICATIONS: Percocet 1-2 tablets every 4 hours as needed. Continue home medications: Atorvastatin 40 mg daily, digoxin 0.125 mg daily, diltiazem 240 mg daily, Lasix 20 mg daily, levothyroxine 75 mcg daily, lisinopril 40 mg daily, loratadine 10 mg daily, metformin 500 mg b.i.d., metoprolol 12.5 mg b.i.d., daily multivitamin, and Coumadin 5 mg daily. He will also have IN[place] checked in the next [place] [facility] WHITNEY
== END 2018-03-02 11:59 | disposition home or self-care (01) | DRG 330 ==
LOC: ASU 06:15 → 2S 11:24 → 3N 02-25 13:51

== ENCOUNTER 2018-04-28 08:37 | Inpatient (IN) ==
--- NOTE | 2018-04-08 15:58 | PAT Medication Instructions ---
Medication Instructions Date of Service April 08, 2018 Home Medications Medication Instructions Recorded oxycodone-acetaminophen [Percocet] 1 - 2 tab PO Q4H PRN #15 tab 02/25/18 atorvastatin 40 mg PO QAM digoxin 0.125 mg PO QAM diltiazem HCl 240 mg PO QPM furosemide 20 mg PO QAM levothyroxine 75 mcg PO QAM lisinopril 40 mg PO QAM loratadine 10 mg PO DAILY PRN metformin 500 mg PO BID metoprolol tartrate 12.5 mg PO BID multivitamin 1 tab PO QAM warfarin 5 mg PO UD enoxaparin 100 mg SUBCUT Q12 oxycodone-acetaminophen [Percocet] 1 - 2 tab PO Q4H ASK your prescriber and surgeon warfarin 5 mg PO UD enoxaparin 100 mg SUBCUT Q12 DO NOT take the morning of surgery furosemide 20 mg PO QAM lisinopril 40 mg PO QAM metformin 500 mg PO BID multivitamin 1 tab PO QAM Take morning of surgery With a small sip of water, OTHERWISE NOTHING TO EAT OR DRINK AFTER MIDNIGHT: atorvastatin 40 mg PO QAM digoxin 0.125 mg PO QAM levothyroxine 75 mcg PO QAM metoprolol tartrate 12.5 mg PO BID oxycodone-acetaminophen [Percocet] 1 - 2 tab PO Q4H (okay to take up to 4 hours prior to surgery if needed) Take evening before surgery diltiazem HCl 240 mg PO QPM loratadine 10 mg PO DAILY PRN (if needed) metformin 500 mg PO BID metoprolol tartrate 12.5 mg PO BID oxycodone-acetaminophen [Percocet] 1 - 2 tab PO Q4H Other Notes If you have any questions please call us at [phone] or [phone] or [phone] or [phone]
--- NOTE | 2018-04-11 11:15 | Anesthesiology Consultation ---
Date of Service April 11, 2018 Assessment & Plan (1) Encounter for pre-operative examination: Plan: - Check coags AM DOS (To bridge warfarin with lovenox per surgeon/prescriber instructions) - Cardio= 03/31/18= "permanent a. fib.. patient has decided to remain in a. fib with rate control. he is feeling well.. does complain of some fatigue, however, he attribute this to his recent bowel surgery." 24hour holter rescheduled to 2018. Cardio response to if further cardiac testing/holter monitoring needed prior to surgery= response received 04/18/18= "may have scheduled TKR without further cardiac testing" Chart Review Chart Review: Acceptable Risk for Surgery and Patient seen in Pre Admission Testing Teaching & Discussion Pre-Anesthesia Teaching/Discussion Notes: Instructed NPO after midnight before surgery,except medications with 15 cc of water. Medication instructions provided according to the PAT guidelines. History Surgery Operation Date: 04/28/18 07:15 Proposed Procedures p Right Total Knee Replacement - Desmond Lo MD Height/Weight Height: 5 ft 10 in Weight: 96.6 kg Allergies Allergy/AdvReac Type Severity Reaction Status Date / Time No Known Allergies Allergy Verified 04/08/18 13:05 Medications Home Medications Medication Instructions Recorded Confirmed Last Taken atorvastatin 40 mg PO QAM 02/17/18 04/08/18 02/22/18 08:00 digoxin 0.125 mg PO QAM 02/17/18 04/08/18 02/23/18 05:30 diltiazem HCl 240 mg PO QPM 02/17/18 04/08/18 02/22/18 21:00 furosemide 20 mg PO QAM 02/17/18 04/08/18 02/22/18 08:00 levothyroxine 75 mcg PO QAM 02/17/18 04/08/18 02/23/18 0530 lisinopril 40 mg PO QAM 02/17/18 04/08/18 02/22/18 08:00 loratadine 10 mg PO DAILY PRN 02/17/18 04/08/18 Unknown metformin 500 mg PO BID 02/17/18 04/08/18 02/21/18 metoprolol tartrate 12.5 mg PO BID 02/17/18 04/08/18 02/23/18 0530 multivitamin 1 tab PO QAM 02/17/18 04/08/18 Unknown warfarin 5 mg PO UD 02/17/18 04/08/18 02/17/18 21:00 enoxaparin 100 mg SUBCUT Q12 02/23/18 04/08/18 Unknown oxycodone-acetaminophen [Percocet] 1 - 2 tab PO Q4H PRN #15 tab 02/25/18 Unknown Past Medical History Medical History CKD (chronic kidney disease), stage III HTN (hypertension) Dyslipidemia Atrial fibrillation CHRONIC Diabetes mellitus, type 2 History of skin cancer MELANOMA Hx of arteriovenous malformation (AVM) AVM CLIPPING (2009) Hyperlipidemia Hypertension Obesity Prolonged QT interval MONITORED BY CARDIO Stroke 2009= NO RESIDUAL DEFICITS Past Family History Family History Aunt Family history of diabetes mellitus Past Surgical History Surgical History H/O brain surgery LEFT FRONTAL CRANIOTOMY + AVM CLIPPING 2009 History of left hip replacement History of Mohs micrographic surgery for skin cancer LEFT SHOULDER History of bowel resection LAP HAND ASSISTED RIGHT HEMICOLECTOMY (2/2 NEOPLASM)= 02/23/18= MAC#4, ETT 7.5 AT [facility] (NO GRADE VIEW LISTED) History of left hip replacement Hx of colonoscopy Past Anesthesia History No Hx of Anesthesia Complications and No Family Hx of Anesthesia Complications Social History Smoking Status: Never smoker Do You Dip or Chew Tobacco: No Hx Alcohol Use: No Hx Substance Use: No Exercise / Class Metabolic Activity II 4-5 Yardwork/Stairs/Walk up hill Review of Systems Patient denies chest pain, shortness of breath, dyspnea on exertion, cough, wheezing. Physical Exam Vital Signs VITALS BP 126/81 P 72 TEMP 97.6 SP02 94%RA RESP 18 PHYSICAL Full neck and c-spine range of motion. Full TMJ range of motion. TMD 3 finger breaths Mallampati Score 3 Dentition: intact Lungs: clear throughout to auscultation Cardiac: irregularly irregular, no murmurs noted Spine: normal Carotid arteries: negative bruit Extremities: no edema Testing Electrocardiogram Date: 02/25/18 A. fib with RVR at 103bpm. NS ST/TWA. Other Testing Chest CT= 02/16/18= NAD, No evidence of metatstatic disease. Laboratory Results 04/11/18 11:34 Blood Type O Positive 04/11/18 11:34 Antibody Screen NEGATIVE 04/11/18 11:34 PT 18.2 Seconds (9.0-12.0) H 04/11/18 11:34 INR 1.9 (0.9-1.1) H 04/11/18 11:34 APTT 27.3 Seconds (21.0-31.0) 04/11/18 11:34 Hemoglobin A1c 6.8 % (4.5-5.6) H 04/11/18 11:34 02/28/18 WBC 9.35 H/H 14.2/42.1 PLATELETS 180
[2018-04-11 12:24] LABS: BUN Creatinine Ratio 16.8 (10-20); Blood Urea Nitrogen 19 mg/dl (7-18); C Reactive Protein < 0.29 mg/dl (0-0.29); Calcium 8.8 mg/dl (8.5-10.1); Carbon Dioxide 32 mmol/L (21-32); Chloride 105 mmol/L (98-107); Creatinine Clr Calc Pharmacy 64.7 ml/min; Est GFR (African American) 71.7; Est GFR (Non-African American) 61.9; Glucose 131 mg/dl (70-99); Sodium 141 mmol/L (136-145)
[2018-04-11 12:26] LABS: INR 1.9 (0.9-1.1); Partial Thromboplastin Ratio 1.1; Partial Thromboplastin Time 27.3 Seconds (21.0-31.0); Prothrombin Time 18.2 Seconds (9.0-12.0)
[2018-04-11 13:05] LABS: Estimated Average Glucose 148 mg/dl; Hemoglobin A1C 6.8 % (4.5-5.6)
--- NOTE | 2018-04-23 09:15 | History and Physical Report ---
DATE OF ADMISSION: 04/28/2018 CHIEF COMPLAINT: Right knee pain. HISTORY OF PRESENT ILLNESS: A 73-year-old gentleman well known to me from previous left hip replacement done in 2012, who presents for surgical treatment of his right knee. He has had a several year history of increasing right knee pain, discomfort, managed by my partner Dr. Fregoso. He has had his knee aspirated and injected on several occasions, which provided minimal relief. He has become more disabled with time. Pain is mostly on the medial side of his knee, but some global pain. The more he walks, the more it hurts. He is on Coumadin, cannot take NSAIDs as a result. He has been using Tylenol with minimal relief. It is limiting his activities and he would like to have his right knee fixed. PAST MEDICAL HISTORY: 1. Atrial fibrillation, currently on Coumadin. 2. Elevated cholesterol. 3. Hypertension. 4. History of stroke in 2009 without sequelae. 5. Diabetes. 6. Hypothyroidism. PREVIOUS SURGERIES: Include: 1. Left total hip replacement done in 10/2012. 2. AV malformation clipping in 2009. 3. Tonsillectomy. 4. Unspecified bowel surgery. ALLERGIES: None. CURRENT MEDICINES: 1. Coumadin 5 mg. 2. Digoxin 250 mcg once a day. 3. Metoprolol 25 mg twice a day. 4. Lisinopril 40 mg a day. 5. Levothyroxine 75 mcg a day. 6. Lactobacillus 2 tablets a day. 7. Furosemide 20 mg a day. 8. Atorvastatin 40 mg a day. 9. Diltiazem XR 240 mg once a day. 10. Magnesium 84 mg a day. SOCIAL HISTORY: A 73-year-old male. He is from [facility]. He is . Does not smoke. FAMILY HISTORY: Noncontributory. REVIEW OF SYSTEMS: Significant for atrial fibrillation and on Coumadin. His rate is controlled with metoprolol. Denies any current chest pain or shortness of breath. Denies any DVT or PE. No known bleeding problems. He did have this TIA and stroke in the past, but without sequelae. He has had recent bowel surgery without a problem. PHYSICAL EXAMINATION: GENERAL: Reveals a healthy, pleasant middle-aged male. Looks to be in pretty good health. HEENT: Benign. NECK: Supple. No lymphadenopathy. LUNGS: Clear to auscultation. HEART: Has a regular rate and rhythm. ABDOMEN: Soft, nontender, nondistended. EXTREMITIES: Grossly neurovascularly intact except as follows. Examination of the right knee reveals the patient walks with a bit of a limp. He has got varus alignment to his knee, which is worse with weightbearing. A little bit of a varus thrust. Small knee effusion. He is tender over the medial joint line. Range of motion is 5-10 degrees show full extension and 125 degrees of flexion. No instability. No pain with hip motion. X-RAYS: X-rays of the right knee reviewed. Shows advanced medial compartment DJD. He has got complete loss of his medial joint space. Patella is well centered within the trochlea. ASSESSMENT: A 73-year-old gentleman with a history of atrial fibrillation and stroke without sequelae with right knee medial compartment degenerative joint disease. He has failed conservative treatment. He would like to have his right knee replaced. PLAN: We will take him to the Operating Room and do a right total knee replacement. The risks and benefits of this procedure were explained to the patient including but not limited to DVT, PE, , infection, neurological injury, vascular injury, bleeding problem, pain, limited range of motion, stiffness, failure to relieve symptoms, incomplete relief of symptoms, need for further surgery in the future, fracture, leg length inequality, nerve palsy, etc. The patient understands and desires to proceed. Informed consent was obtained. We did talk to him about holding his Coumadin 5 days preop. We will hold his lisinopril and any Lovenox 24 hours preop. He will take his metoprolol the morning of surgery. He is planning to be discharged to home using [facility].
[~2018-04-28 08:37] MED LIST changes: +ACETAMINOPHEN 500 MG TAB PO SCH; +BUPIVACAINE 0.5 % 5 MG/1 ML PF 10ML VIAL ONE; +BUPIVACAINE LIPOSOME/PF 266 MG, BUPIVACAINE/EPINEPHRINE 50 ML, SODIUM CHLORIDE 0.9% 30 ... INFIL SCH; +CEFAZOLIN 2000MG 2,000 MG/15 ML SYR IV SCH; +FAMOTIDINE 20 MG TAB PO SCH; +GABAPENTIN 300 MG PO SCH; -LR 15ML/HR IV SCH; +LR 500ML BOLUS, THEN 15ML/HR IV SCH; +LR 60ML/HR IV SCH; +METOCLOPRAMIDE HCL 10 MG TABLET PO SCH; +ROPIVACAINE 0.5% 5 MG/ML 30 ML VIAL ONE; +TRANEXAMIC ACID 1,000 MG **IV Intra-op IV SCH; -cefOXitin 2,000 MG in DEXTROSE 5% 50 ML IV SCH; -cefTRIAXone SODIUM 2,000 MG in DEXTROSE 5% 50 ML IV SCH
[2018-04-28] MEDS ORDERED: ONDANSETRON INJ 2 MG/ML 2 ML VIAL IV PRN ×2 (08:46→15:37)
[2018-04-28] MEDS ORDERED: ePHEDrine sulfate 50 MG/ML AMP IV PRN (08:46)
[2018-04-28] MEDS ORDERED: ATROPINE SULFATE 0.1 MG/ML 10ML SYR IV PRN (08:46)
[2018-04-28] MEDS ORDERED: BACITRACIN INJ 50,000 UNIT VIAL ONE (09:25)
[2018-04-28] MEDS ORDERED: SODIUM CHLORIDE 0.9% PF 50 ML VIAL ONE (09:25)
[2018-04-28] MEDS ORDERED: BUPIVACAINE LIPOSOME 1.3% 266 MG/20 ML VIAL ONE (09:25)
[2018-04-28] MEDS ORDERED: EPINEPHrine INJ 1 MG/ML AMP ONE (09:26)
[2018-04-28] MEDS ORDERED: BUPIVACAINE 0.25% 30 ML VIAL ONE (09:26)
[2018-04-28 09:31] LABS: INR 1.1 (0.9-1.1); Partial Thromboplastin Ratio 0.9; Partial Thromboplastin Time 25.5 Seconds (21.0-31.0); Prothrombin Time 10.9 Seconds (9.0-12.0)
[2018-04-28] MEDS ORDERED: KETAMINE HCL INJ 50 MG/ML 10 ML VIAL ONE (09:42)
[2018-04-28] MEDS ORDERED: MIDAZOLAM HCL 1 MG/ML 2ML VIAL ONE (09:42)
[2018-04-28] MEDS ORDERED: fentaNYL citrate 100 MCG/2 ML VIAL ONE ×2 (09:44→11:41)
--- NOTE | 2018-04-28 11:02 | History & Physical Bridge Note ---
Date of Service April 28, 2018 History & Physical Bridge Note I have examined the patient, reviewed the History & Physical and in the interval since the performance of the History & Physical I have noted the following changes of clinical significance: no changes noted
[2018-04-28] MEDS ORDERED: ONDANSETRON INJ 2 MG/ML 2 ML VIAL ONE (11:30)
[2018-04-28] MEDS ORDERED: PHENYLEPHRINE 100MCG/ML 5ML SYR ONE (11:30)
[2018-04-28] MEDS ORDERED: PROPOFOL IV EMULSION 10 MG/ML 20 ML VIAL IV ONE (11:30)
[2018-04-28] MEDS ORDERED: DEXAMETHASONE SOD INJ 4 MG/ML VIAL ONE (11:30)
--- NOTE | 2018-04-28 12:51 | Post Operative Brief Note ---
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
[2018-04-28] MEDS: fentaNYL citrate 100 MCG/2 ML VIAL IV PRN ×4 (13:10→13:25)
--- NOTE | 2018-04-28 13:28 | XRay Report ---
XR knee RT 2V routine CLINICAL HISTORY: Surgical Post Op DEGENERATIVE ARTHRITIS COMPARISON: Outside study dated 04/11/2018 DISCUSSION: There are postsurgical changes of a total right knee arthroplasty and patellar resurfacin g. The femoral tibial components appear well seated. Following skin coby are evident. There is air within soft tissues consistent with recent surgery. IMPRESSION: Postsurgical changes of a total right knee arthroplasty. Electronically signed by: Joel Trejo M.D. 04/28/2018 1:27 PM
[2018-04-28] MEDS: HYDROmorphone INJ 1 MG/ML SYRINGE IV PRN ×3 (13:31→13:41)
[2018-04-28] MEDS ORDERED: METOPROLOL TARTRATE 1 MG/ML VIAL IV ONE (13:53)
[2018-04-28] MEDS ORDERED: METOPROLOL TARTRATE 1 MG/ML VIAL IV STA (14:14)
--- NOTE | 2018-04-28 14:48 | Anesthesiology Progress Note ---
Date of Service April 28, 2018 Anesthesia Post Procedure Vital Signs Vital Signs: Temp Pulse Pulse Resp BP BP Pulse Ox 04/28/18 14:30 114 H 10 L 111/77 97 04/28/18 14:25 105 H 7 L 125/87 99 04/28/18 14:20 90 7 L 135/92 97 04/28/18 14:16 107 H 132/93 04/28/18 14:15 102 H 17 132/93 92 04/28/18 14:10 106 H 10 L 127/76 98 04/28/18 14:06 96 H 14 124/66 98 04/28/18 14:05 131 H 15 98 04/28/18 14:01 127 H 131/91 04/28/18 14:00 134 H 15 130/91 91 04/28/18 13:57 116 H 12 105/89 97 04/28/18 13:56 111 H 12 135/113 H 97 04/28/18 13:55 135 H 13 97 04/28/18 13:54 158 H 140/75 04/28/18 13:50 123 H 12 140/75 97 04/28/18 13:45 124 H 20 133/99 95 04/28/18 13:41 101 H 9 L 120/81 97 04/28/18 13:40 123 H 10 L 98 04/28/18 13:35 118 H 17 127/112 H 97 04/28/18 13:30 120 H 13 117/94 98 04/28/18 13:26 143 H 16 137/104 H 96 04/28/18 13:25 132 H 13 99 04/28/18 13:21 112 H 12 131/90 97 04/28/18 13:20 114 H 13 96 04/28/18 13:17 102 H 7 L 144/92 H 97 04/28/18 13:15 120 H 12 129/109 H 96 04/28/18 13:10 127 H 10 L 130/102 H 95 04/28/18 13:05 127 H 31 H 140/102 H 96 04/28/18 13:01 109 H 18 121/70 98 04/28/18 13:00 101 H 23 96 04/28/18 12:57 36.6 C 122 H 116 H 18 137/81 137/81 92 04/28/18 12:56 119 H 11 L 95 04/28/18 09:25 36.5 C 89 18 128/69 97 Pain Intensity Right Knee: Pain Intensity: 3 Notes Mental Status: alert / awake / arousable and participated in evaluation Patient Amnestic to Procedure: Yes Nausea / Vomiting: adequately controlled Pain: adequately controlled Airway Patency, RR, SpO2: stable & adequate BP & HR: see Notes below Hydration State: stable & adequate Anesthetic Complications: no major complications apparent and Pt Satisfied with anesthetic care Notes: Patient with a known history of A fib on BID metoprolol and qhs diltiazem. In recovery, HR 130s and was given a total of 7.5mg metoprolol in divided doses IV. HR then in the 90s. Attending surgeon aware. Plan to transfer to telemetry and consult cardiology for rate control post-op. Patient agrees with plan and questions answered.
[2018-04-28] MEDS ORDERED: GLUCOSE 10 TABS/TUBE PO PRN ×2 (15:37→17:15)
[2018-04-28] MEDS ORDERED: LORATADINE 10 MG TAB PO PRN (15:37)
[2018-04-28] MEDS ORDERED: GLUCAGON FOR INJ 1 MG VIAL SQ PRN ×2 (15:37→17:15)
[2018-04-28] MEDS ORDERED: METOCLOPRAMIDE HCL INJ 5 MG/ML 2 ML VIAL IV PRN (15:37)
[2018-04-28] MEDS ORDERED: MAGNESIUM HYDROXIDE SUSP 30 ML UDC PO PRN (15:37)
[2018-04-28] MEDS ORDERED: ALUMINUM/MAGNESIUM SUSP 30 ML UDC PO PRN (15:37)
[2018-04-28] MEDS ORDERED: CARBOHYDRATES FOR HYPOGLYCEMIA PO PRN ×2 (15:37→17:15)
[2018-04-28] MEDS ORDERED: BISACODYL 10 MG SUPP PR PRN (15:37)
[2018-04-28] MEDS ORDERED: PHARMACY GLYCEMIC MGMT CONSULT STA (15:37)
[2018-04-28] MEDS ORDERED: TAMSULOSIN HCL 0.4 MG CAP PO PRN (15:37)
[2018-04-28] MEDS ORDERED: GLUCOSE 40% GEL 15 GM TUBE PO PRN ×2 (15:37→17:15)
[2018-04-28] MEDS ORDERED: DEXTROSE 50% 50 ML SYRINGE IV PRN ×2 (15:37→17:15)
[2018-04-28] MEDS ORDERED: NALOXONE HCL 0.4 MG/1 ML VIAL/CARP IV PRN (15:37)
[2018-04-28] MEDS ORDERED: WARFARIN SOD 10 MG TAB PO ONE (15:57)
[2018-04-28] MEDS: SODIUM CHLORIDE 0.9% 1000ML 1,000 ML IV SCH ×2 (16:30→23:22)
[2018-04-28] MEDS: ACETAMINOPHEN 500 MG TAB PO SCH (16:34)
[2018-04-28] MEDS: FERROUS GLUCONATE 324 MG TAB PO SCH (16:51)
[2018-04-28] MEDS: KETOROLAC TROMETHAMINE 15 MG/ML VIAL IV SCH ×2 (16:54→23:22)
[2018-04-28] MEDS: ASCORBIC ACID 500 MG TAB PO SCH (17:24)
[2018-04-28] MEDS: INSULIN ASPART 100 UNITS/ML 3 ML PEN SC SCH ×2 (17:44→20:15)
--- NOTE | 2018-04-28 18:10 | Cardiology Consultation ---
Date of Consultation April 28, 2018 Assessment & Plan (1) Chronic atrial fibrillation: Continue chronic rate control strategy with home medications including digoxin, diltiazem, metoprolol. The patient's rates are mildly elevated while he sits up and eats in the range of 120-130 bpm, but he was relatively well controlled when he first arrived in the PACU. Stroke prophylaxis: The patient has a history of stroke, seemingly related to atrial fibrillation in 2009. He was bridged with Lovenox leading up to the procedure with most recent dose yesterday morning. The patient already follows the [facility] anticoagulation clinic in [place]. Per review of the pharmacy note dated 04/15/17 the patient is tentatively scheduled to resume Lovenox 100 mg of subcu every 12 hours tomorrow, 04/29 at 8 PM, with plans to continue until 05/02. The tentative plan was for him to take Coumadin 7.5 mg today, and on 04/29/18, and then go back to his prior dose of 5 mg on 04/30. His Coumadin had already been administered a dose of 10 mg today 04/28/18 and 1709 prior to my arrival. We will get him back on track tomorrow. Diagnostics: A basic metabolic panel, complete blood count, and INR are already ordered to be completed tomorrow morning. (2) Status post right knee replacement: History of Present Illness Attending Physician: Desmond Lo MD History of Present Illness Lukas Soto is a 73 year old male seen in cardiology consultation per the request of Dr. Desmond Lo of orthopedic surgeon for postoperative management of chronic atrial fibrillation. The patient typically follows with [facility] cardiology. He describes a history of atrial fibrillation that was first diagnosed in 2009 when he had a stroke. He describes having been hospitalized for 3 days in [place] and treatment with dofetilide was initiated for rhythm control, he describes that this was ultimately unsuccessful and ongoing rate control was pursued. In January, he had a partial colectomy performed at this institution for diagnosis of colon cancer. Postoperatively he was followed by Dr. Ackerman of our group because his atrial fibrillation rates were located. These improved after the patient resumed his typical home medication regimen after his volume status normalized postoperatively. The patient describes having ultimately recovered well from his elective knee surgery and states he did not require chemotherapy or radiation therapy. He underwent elective right knee replacement today for symptomatic osteoarthritis. At present, the patient is hospitalized in room 210. He is sitting up eating his evening meal and is in no distress. His pain is well controlled. He has no subjective palpitations. Allergies Allergy/AdvReac Type Severity Reaction Status Date / Time No Known Allergies Allergy Verified 04/28/18 09:14 Home Medications Home Medications Medication Instructions Recorded Confirmed Type atorvastatin 40 mg PO QAM 02/17/18 04/28/18 History digoxin 0.125 mg PO QAM 02/17/18 04/28/18 History diltiazem HCl 240 mg PO QPM 02/17/18 04/28/18 History furosemide 20 mg PO QAM 02/17/18 04/28/18 History levothyroxine 75 mcg PO QAM 02/17/18 04/28/18 History lisinopril 40 mg PO QAM 02/17/18 04/28/18 History loratadine 10 mg PO DAILY PRN 02/17/18 04/28/18 History metformin 500 mg PO BID 02/17/18 04/28/18 History metoprolol tartrate 12.5 mg PO BID 02/17/18 04/28/18 History multivitamin 1 tab PO QAM 02/17/18 04/28/18 History warfarin 5 mg PO UD 02/17/18 04/28/18 History enoxaparin 100 mg SUBCUT Q12 02/23/18 04/28/18 History oxycodone-acetaminophen [Percocet] 1 - 2 tab PO Q4H PRN #15 tab 02/25/18 04/28/18 Rx Patient History Family History Aunt Family history of diabetes mellitus Social History Preferred Language: Tuvaluan Communication Ability: Effective Form Setter Required: No Beliefs That Will Affect Care: None Current Living Situation: Spouse Other Information That Helps Us Care for You: No Feels Safe at Home: Yes Safety Concerns: Feels Safe At This Time Smoking Status: Never smoker Hx Alcohol Use: No Hx Substance Use: No Review of Systems 10 point review of systems was reviewed and is negative with the exception of that above Physical Exam Vital Signs (Past 24 Hours): Last Vital Signs Temp 36.8 C 04/28/18 17:07 Pulse 121 H 04/28/18 17:07 Resp 20 04/28/18 17:07 BP 121/78 04/28/18 17:07 Pulse Ox 98 04/28/18 17:07 Constitutional: WD/WN, vitals as above Respiratory: normal respiratory effort, lungs clear to auscultation Cardiovascular: Tachycardic, irregular rhythm, no murmurs Musculoskeletal: Right lower leg wrapped with Darnell bandage Neurologic: Conversant, moves all 4 extremities on command Results & Data Diagnostic Findings Summary of echocardiogram performed 02/24/18: Moderate concentric left ventricular hypertrophy was present. The left ventricular wall motion was normal. The LVEF was 55-60%. Borderline right ventricular enlargement was noted. The right atrium was mildly dilated Mild tricuspid regurgitation was noted Mild pulmonary hypertension was noted to be suspected. Medications Administered Current Inpatient Medications Acetaminophen (Tylenol) 1,000 mg PO Q8 [facility], [facility] Stop: 05/28/18 15:36 Last Admin: 04/28/18 16:34 Dose: 1,000 mg Documented by: Al Hydrox/Mg Hydrox/Simethicone (Maalox) 15 ml PO Q4H PRN PRN Reason: Heartburn Stop: 05/28/18 15:36 Ascorbic Acid (Vitamin C) 500 mg PO BIDM YAS Stop: 05/28/18 16:59 Last Admin: 04/28/18 17:24 Dose: 500 mg Documented by: Atorvastatin Calcium (Lipitor) 40 mg PO QAM [facility]1983 Stop: 05/29/18 08:59 Bisacodyl (Dulcolax) 10 mg NE Q6H PRN PRN Reason: Constipation Stop: 05/28/18 15:36 Dextrose (Dextrose 50%) 25 - 50 ml IV UD PRN; Protocol PRN Reason: Hypoglycemia Protocol Stop: 05/28/18 15:36 Dextrose (Dextrose 50%) 25 - 50 ml IV UD PRN; Protocol PRN Reason: Hypoglycemia Protocol Stop: 05/28/18 17:14 Digoxin (Lanoxin) 0.125 mg PO DAILY@1600 [facility], [facility] Stop: 05/29/18 15:59 Diltiazem HCl (Tiazac) 240 mg PO QPM [facility] Stop: 05/28/18 20:59 Docusate Sodium (Colace) 100 mg PO BID [facility] Stop: 05/28/18 20:59 Ferrous Gluconate (Ferrous Gluconate) 324 mg PO BIDM [facility] Stop: 05/28/18 16:59 Last Admin: 04/28/18 16:51 Dose: 324 mg Documented by: Furosemide (Lasix) 20 mg PO QAM YAS Stop: 05/29/18 08:59 Glucagon (Glucagen) 1 mg SQ UD PRN; Protocol PRN Reason: Hypoglycemia Protocol Stop: 05/28/18 15:36 Glucagon (Glucagen) 1 mg SQ UD PRN; Protocol PRN Reason: Hypoglycemia Protocol Stop: 05/28/18 17:14 Glucose (Glucose 40%) 15 - 30 gm PO UD PRN; Protocol PRN Reason: Hypoglycemia Protocol Stop: 05/28/18 15:36 Glucose (Dex4 Glucose) 4 - 8 tabs PO UD PRN; Protocol PRN Reason: Hypoglycemia Protocol Stop: 05/28/18 15:36 Glucose (Glucose 40%) 15 - 30 gm PO UD PRN; Protocol PRN Reason: Hypoglycemia Protocol Stop: 05/28/18 17:14 Glucose (Dex4 Glucose) 4 - 8 tabs PO UD PRN; Protocol PRN Reason: Hypoglycemia Protocol Stop: 05/28/18 17:14 Hydromorphone HCl (Dilaudid) 0.5 mg IV Q4H PRN PRN Reason: Pain Stop: 05/12/18 15:36 Lactated Ringer's (Lr) 1,000 mls @ 60 mls/hr IV .[id number] [facility] Stop: 04/28/18 22:39 Last Infusion: 04/28/18 11:11 Dose: Infused Documented by: Lactated Ringer's (Lr) 1,000 mls @ 15 mls/hr IV .Q24H YAS Stop: 05/28/18 05:59 Last Admin: 04/28/18 11:13 Dose: Not Given Documented by: Cefazolin Sodium (Ancef 2000mg) 2,000 mg in 15 mls @ 3.75 mls/min IV Q8H [facility]; Protocol Stop: 04/29/18 03:03 Tranexamic Acid 1,000 mg/ (Sodium Chloride) 110 mls @ 660 mls/hr IV Q6H YAS Stop: 04/28/18 19:09 Sodium Chloride (Nss 1000ml) 1,000 mls @ 125 mls/hr IV .Q8H YAS Stop: 04/29/18 06:00 Last Admin: 04/28/18 16:30 Dose: 125 mls/hr Documented by: Insulin Aspart (Novolog Flexpen) 0 units SC ACHS [facility] Stop: 05/28/18 17:14 Last Admin: 04/28/18 17:44 Dose: 8 units Documented by: Ketorolac Tromethamine (Toradol) 15 mg IV Q6H [facility] Stop: 04/29/18 11:01 Last Admin: 04/28/18 16:54 Dose: 15 mg Documented by: Levothyroxine Sodium (Synthroid) 75 mcg PO DAILYBB [facility] Stop: 05/29/18 06:29 Lisinopril (Zestril) 40 mg PO QAM [facility] Stop: 05/29/18 08:59 Loratadine (Claritin) 10 mg PO DAILY PRN PRN Reason: allergies Stop: 05/28/18 15:36 Magnesium Hydroxide (Milk Of Magnesia) 30 ml PO Q6H PRN PRN Reason: Constipation Stop: 05/28/18 15:36 Metoclopramide HCl (Reglan) 10 mg IV Q6H PRN PRN Reason: Nausea And Vomiting Stop: 05/28/18 15:36 Metoprolol Tartrate (Lopressor) 12.5 mg PO BID [facility] Stop: 05/28/18 20:59 Miscellaneous (Carbohydrates For Hypoglycemia) 15 - 30 gm PO UD PRN PRN Reason: Hypoglycemia Treatment Stop: 05/28/18 15:36 Miscellaneous (Carbohydrates For Hypoglycemia) 15 - 30 gm PO UD PRN PRN Reason: Hypoglycemia Treatment Stop: 05/28/18 17:14 Multivitamins (Multivitamin Tab) 1 tab PO QAM [facility] Stop: 05/29/18 08:59 Naloxone HCl (Narcan) 0.1 mg IV Q5M PRN PRN Reason: Oversedation/Resp Depression Stop: 05/28/18 15:36 Ondansetron HCl (Zofran) 4 mg IV Q6H PRN PRN Reason: Nausea And Vomiting Stop: 05/28/18 15:36 Sennosides (Senokot) 17.2 mg PO HS [facility] Stop: 05/28/18 20:59 Tamsulosin HCl (Flomax) 0.4 mg PO QAM PRN PRN Reason: unable to void Stop: 05/28/18 15:36 Tramadol HCl (Ultram) 50 - 100 mg PO Q4H PRN PRN Reason: Pain Stop: 05/28/18 15:36
[2018-04-28] MEDS: CEFAZOLIN 2000MG 2,000 MG/15 ML SYR IV SCH (18:42)
[2018-04-28] MEDS ORDERED: TRANEXAMIC ACID 1,000 MG in 0.9 % SODIUM CHLORIDE 100 ML IV SCH (19:00)
[2018-04-28] MEDS: METOPROLOL TARTRATE 25 MG TAB PO SCH (20:13)
[2018-04-28] MEDS: DOCUSATE SODIUM 100 MG CAP PO SCH (20:13)
[2018-04-28] MEDS: SENNA 8.6 MG TAB PO SCH (20:13)
[2018-04-28] MEDS: dilTIAZem ER 120 MG CAPCR PO SCH (20:13)
--- NOTE | 2018-04-28 20:26 | Progress Note ---
DATE: 04/28/2018 SUBJECTIVE: A 73-year-old gentleman postop from a right knee replacement. He is doing pretty well from the knee standpoint. Having some pain. Denies any chest pain or shortness of breath. He was having some tachycardia with his AFib in the recovery room and he is now placed on a monitored bed. Denies any chest pain or shortness of breath. Not feeling dizzy or lightheaded. OBJECTIVE: VITAL SIGNS: Temperature 36.8. Vital signs stable. Intermittent tachycardia. EXTREMITIES: Examination of the right leg reveals the leg to be well aligned. Dressing is clean, dry, and intact. He can dorsiflex and plantarflex his foot appropriately. NEUROLOGIC: He is neurologically intact. X-RAYS: X-ray of right knee from recovery room was reviewed, shows cemented posterior stabilized total knee arthroplasty. The components looked to be in good position. No signs of problems. ASSESSMENT: A 73-year-old gentleman postop from right knee replacement, doing pretty well. He has a history of underlying atrial fibrillation and his rate has been controlled in the past. He has had some intermittent tachycardia. He has got no symptoms. Cardiology has been consulted. PLAN: 1. Deep venous thrombosis prophylaxis including thigh-high TEDs, SCDs and we will start him back on his Coumadin tonight. We will dose him with 10 mg. We may start him on prophylactic Lovenox tomorrow. 2. PT and OT. Weight bear as tolerated. Right total knee protocol. 3. Pain control, doing pretty well with current pain regimen. 4. Cardiology management. Cardiology has been consulted. We will start him back on his Coumadin. 5. Diabetes. Insulin sliding scale diabetic management as per the pharmacy. 6. Disposition: He is planning to be discharged to home likely with some home health once adequately recovered.
[2018-04-28] MEDS ORDERED: LANTUS PER UNIT CHARGE SQ ONE ×2 (21:00)
--- NOTE | 2018-04-28 23:43 | Operative Report ---
DATE OF OPERATION: 04/28/2018 SURGEON: Desmond Lo MD. GIS ENGINEER: Austin Alejandra PA-C PREOPERATIVE DIAGNOSIS: Right knee degenerative joint disease. POSTOPERATIVE DIAGNOSIS: Right knee degenerative joint disease. PROCEDURE PERFORMED: Right cemented posterior stabilized total knee arthroplasty. COMPLICATIONS: None. ESTIMATED BLOOD LOSS: 50 mL. FLUID REPLACEMENT: 1700 mL crystalloid fluid replacement. TOURNIQUET TIME: 53 minutes at 300 mmHg. ANESTHESIA: General with adductor canal block. DRAINS: None. SPECIMENS: Right knee sent for pathology. OPERATIVE INDICATIONS: The patient is a 73-year-old gentleman who had about a year history of markedly increased right knee pain and discomfort, unresponsive to conservative treatment. X-rays showed progressive and advanced medial compartment arthritis. He elected to proceed with surgical treatment. OPERATIVE FINDINGS: Operative findings reveal advanced medial compartment arthritis. The lateral and patellofemoral compartments were pretty well preserved. He had a large knee joint effusion. He had grade 4 [id number] disease medially. OPERATIVE IMPLANTS: Operative implants consisted of: 1. Biomet Vanguard size 70 right posterior stabilized femoral component. 2. A Biomet size 75 tibial tray. 3. A 10 mm posterior stabilized polyethylene insert. 4. A 31 x 8 all poly patella. OPERATIVE PROCEDURE: The patient was taken to the operating room, identified and placed on the operating table in supine position. All contact areas were appropriate padded. IV antibiotics were provided by anesthesia team. An adductor canal block had been provided in the holding area. A general anesthetic was implemented at the patient's request. A right thigh tourniquet was then placed and the right lower extremity was then prepped and draped in usual sterile fashion. The right leg was elevated and exsanguinated with Esmarch and tourniquet was placed at 300 mmHg. An anterior approach of the right knee was then performed through longitudinal incisions centered over the patella. Sharp dissection was carried through subcutaneous tissues down to the level of the extensor mechanism. A medial parapatellar arthrotomy incision was made. Some subperiosteal dissection was carried out medially. The fat pad was resected from beneath the patellar tendon. The lateral patellofemoral ligament was released. The patella was everted and knee was flexed. The osteophytes were taken off the distal femur. The ACL and PCL were then released from distal femur and tibia subluxated anteriorly. The external tibial alignment jig was then placed in the anterior face of the tibia and adjusted 16 mm medially. Proximal tibial cut was made to remove about 2 mm of bone from the most deficient aspect of the medial tibial plateau. Some osteophytes were taken off medial and posteromedially. Tibia size was sized to a size 75. Attention was then drawn to the femur. The distal femur was entered with a sharp drill bit. Intramedullary canal was suctioned. A right 6-degree valgus cutting guide was placed and distal femoral cutting block was pinned in place. Distal femoral cut was made to take an additional 3 mm of bone off the distal femur. Femur was then sized to a size 70. We did downsize this slightly. The AP cutting block was pinned parallel to the epicondylar axis, which was 3 degrees of external rotation. The anterior cut, anterior chamfer, posterior cut, posterior chamfer cuts were made. Box cutting guide was placed and adjusted slight lateral and the box cut was made. The knee was flexed. The remnants of the medial and lateral menisci were excised. The osteophytes were taken off the posterior aspect of the femur. Trial femoral component was placed. Tibial tray was pinned in maximum external rotation and the drill and stem punch were used to create defect in proximal tibia for the tibial tray. The knee was then trialed and a 10 mm insert fit most appropriately. Attention was then drawn towards the patella. Patella was cleaned of all soft tissues. Patellar thickness measured 23 mm and was cut down to 14. It was sized to a size 31 patella. Lug holes were drilled for 31 patella. Lateral osteophyte was removed. Patellar button was placed. Knee was taken through range of motion and patella tracked nicely with no thumbs test. Attention was then drawn toward placement of permanent components. All trial components were removed. A bone plug was placed in the distal femur to limit blood loss. A double batch of Palacos G cement was mixed. A Biomet Vanguard size 70 right posterior stabilized femoral component, size 75 tibial tray, 10 mm posterior stabilized polyethylene insert, and a 31 x 8 all poly patella were then cemented in place. Knee was brought out into full extension until cement hardened. A final cement check was then performed. Pericapsular tissues were injected with a total of 100 mL of a combination of 20 mL of Exparel, 30 mL of normal saline, 50 mL of 0.25% Marcaine with epinephrine. The patient did receive 1 gram of tranexamic acid. The tourniquet was then let down for final tourniquet time of 53 minutes. Hemostasis was assured using electrocautery. The extensor mechanism was then closed with a combination of #1 PDS suture and #1 Vicryl suture in a [id number] fashion. Extensor mechanism was checked and found to be intact. The subcutaneous tissue was then closed with #2 Dexon suture in a buried interrupted fashion. Skin was closed with skin coby. Leg was then cleaned, dried and a sterile dressing with Xeroform, 4 x 4, sterile cast padding, and Darnell bandage were applied. The patient then brought out of general anesthesia and transferred to the recovery room in stable condition. The patient tolerated the procedure well with no complications. All needle and sponge counts were correct at the end of the operation. I attest to the content of the Intraoperative Record and any orders documented therein. Any exception s are noted below.
[2018-04-29] MEDS: INSULIN ASPART 100 UNITS/ML 3 ML PEN SC SCH ×6 (00:30→21:09)
[2018-04-29] MEDS: CEFAZOLIN 2000MG 2,000 MG/15 ML SYR IV SCH (03:32)
[2018-04-29] MEDS: LEVOTHYROXINE SODIUM 75 MCG TABLET PO SCH (05:38)
[2018-04-29] MEDS: KETOROLAC TROMETHAMINE 15 MG/ML VIAL IV SCH ×2 (05:38→11:31)
[2018-04-29] MEDS: ACETAMINOPHEN 500 MG TAB PO SCH ×3 (05:39→21:12)
[2018-04-29 05:58] LABS: Hematocrit (blood only) 35.3 % (42-52); Mean Corpuscular Volume 87.2 fL (80-100); Mean Platelet Volume 9.4 fL (7.4-10.4); Platelet Count 203 K/uL (130-400); RDW Coefficient of Variation 13.4 % (11.5-14.5); RDW Standard Deviation 42.6 fL (36.4-46.3); Red Blood Count 4.05 M/uL (4.7-6.1)
[2018-04-29] MEDS ORDERED: PHARMACY GLYCEMIC MGMT CONSULT PRN (06:08)
[2018-04-29 06:18] LABS: INR 1.1 (0.9-1.1); Prothrombin Time 11.5 Seconds (9.0-12.0)
[2018-04-29 06:27] LABS: BUN Creatinine Ratio 16.9 (10-20); Calcium 7.4 mg/dl (8.5-10.1); Creatinine Clr Calc Pharmacy 71.5 ml/min; Est GFR (African American) 79.2; Est GFR (Non-African American) 68.3; Potassium 4.3 mmol/L (3.5-5.1)
--- NOTE | 2018-04-29 08:19 | Anesthesiology Progress Note ---
Date of Service April 29, 2018 Anesthesia Post Procedure Vital Signs Vital Signs: Temp Pulse Pulse Pulse Resp BP BP 04/29/18 07:02 36.7 C 91 H 16 108/62 04/29/18 04:03 37.1 C 67 17 100/61 04/29/18 00:08 36.9 C 97 H 17 106/56 L 04/28/18 21:16 99 H 04/28/18 19:36 36.8 C 116 H 20 108/63 04/28/18 18:07 36.7 C 111 H 20 112/75 04/28/18 17:07 36.8 C 121 H 20 121/78 04/28/18 16:07 36.8 C 105 H 20 115/74 04/28/18 15:37 37.2 C 113 H 18 121/78 04/28/18 14:30 114 H 10 L 111/77 04/28/18 14:25 105 H 7 L 125/87 04/28/18 14:20 90 7 L 135/92 04/28/18 14:16 107 H 132/93 04/28/18 14:15 102 H 17 132/93 04/28/18 14:10 106 H 10 L 127/76 04/28/18 14:06 96 H 14 124/66 04/28/18 14:05 131 H 15 04/28/18 14:01 127 H 131/91 04/28/18 14:00 134 H 15 130/91 04/28/18 13:57 116 H 12 105/89 04/28/18 13:56 111 H 12 135/113 H 04/28/18 13:55 135 H 13 04/28/18 13:54 158 H 140/75 04/28/18 13:50 123 H 12 140/75 04/28/18 13:45 124 H 20 133/99 04/28/18 13:42 36.4 C L 117 H 16 120/81 04/28/18 13:41 101 H 9 L 120/81 04/28/18 13:40 123 H 10 L 04/28/18 13:35 118 H 17 127/112 H 04/28/18 13:30 120 H 13 117/94 04/28/18 13:26 143 H 16 137/104 H 04/28/18 13:25 132 H 13 04/28/18 13:21 112 H 12 131/90 04/28/18 13:20 114 H 13 04/28/18 13:17 102 H 7 L 144/92 H 04/28/18 13:15 120 H 12 129/109 H 04/28/18 13:10 127 H 10 L 130/102 H 04/28/18 13:05 127 H 31 H 140/102 H 04/28/18 13:01 109 H 18 121/70 04/28/18 13:00 101 H 23 04/28/18 12:57 36.6 C 122 H 116 H 18 137/81 137/81 04/28/18 12:56 119 H 11 L 04/28/18 09:25 36.5 C 89 18 128/69 Pulse Ox 04/29/18 07:02 95 04/29/18 04:03 96 04/29/18 00:08 96 04/28/18 21:16 04/28/18 19:36 97 04/28/18 18:07 98 04/28/18 17:07 98 04/28/18 16:07 98 04/28/18 15:37 98 04/28/18 14:30 97 04/28/18 14:25 99 04/28/18 14:20 97 04/28/18 14:16 04/28/18 14:15 92 04/28/18 14:10 98 04/28/18 14:06 98 04/28/18 14:05 98 04/28/18 14:01 04/28/18 14:00 91 04/28/18 13:57 97 04/28/18 13:56 97 04/28/18 13:55 97 04/28/18 13:54 04/28/18 13:50 97 04/28/18 13:45 95 04/28/18 13:42 98 04/28/18 13:41 97 04/28/18 13:40 98 04/28/18 13:35 97 04/28/18 13:30 98 04/28/18 13:26 96 04/28/18 13:25 99 04/28/18 13:21 97 04/28/18 13:20 96 04/28/18 13:17 97 04/28/18 13:15 96 04/28/18 13:10 95 04/28/18 13:05 96 04/28/18 13:01 98 04/28/18 13:00 96 04/28/18 12:57 92 04/28/18 12:56 95 04/28/18 09:25 97 Pain Intensity Right Knee: Pain Intensity: 3 Notes Mental Status: alert / awake / arousable Patient Amnestic to Procedure: Yes Nausea / Vomiting: adequately controlled Pain: adequately controlled Airway Patency, RR, SpO2: stable & adequate BP & HR: stable & adequate Hydration State: stable & adequate Anesthetic Complications: no major complications apparent and Pt Satisfied with anesthetic care
[2018-04-29] MEDS: FERROUS GLUCONATE 324 MG TAB PO SCH ×2 (08:23→18:10)
[2018-04-29] MEDS: MULTIVITAMIN TAB PO SCH (08:24)
[2018-04-29] MEDS: ASCORBIC ACID 500 MG TAB PO SCH ×2 (08:24→18:11)
[2018-04-29] MEDS: LISINOPRIL 40 MG TAB PO SCH (08:24)
[2018-04-29] MEDS: FUROSEMIDE 20 MG TAB PO SCH (08:25)
[2018-04-29] MEDS: DOCUSATE SODIUM 100 MG CAP PO SCH ×2 (08:25→21:02)
[2018-04-29] MEDS: ATORVASTATIN 40 MG TAB PO SCH (08:29)
[2018-04-29] MEDS: METOPROLOL TARTRATE 25 MG TAB PO SCH ×2 (08:29→21:07)
[2018-04-29] MEDS ORDERED: INSULIN GLARGINE SOLOSTAR 100 UNITS/ML 3 ML PEN SC SCH (09:00)
[2018-04-29] MEDS ORDERED: MULTIVITAMIN TAB PO SCH (09:00)
--- NOTE | 2018-04-29 09:32 | Progress Note ---
DATE: 04/29/2018 SUBJECTIVE: A 73-year-old gentleman postop day 1 from a right knee replacement. He is doing well. Not really having much pain at all. No chest pain or shortness of breath. Not feeling dizzy or lightheaded. OBJECTIVE: VITAL SIGNS: Temperature 36.7. Vital signs stable. Heart rate is 91. EXTREMITIES: Examination of the right leg reveals the leg to be well aligned. Dressing is clean, dry, and intact. He can dorsiflex and plantarflex his foot appropriately. He is neurologically intact. LABORATORY DATA: Hemoglobin 12.0. Hematocrit 35.3. White cell count 12.70. Electrolytes are stable. INR 1.1. ASSESSMENT: A 73-year-old gentleman with underlying diabetes as well as AFib, postop day 1 from right knee replacement, doing well. His heart rate seems to be controlled. His pain is controlled. PLAN: 1. DVT prophylaxis including thigh-high TEDs, SCDs, and will back on his Coumadin. He is given 7.5 mg today and then will go to 5 mg a day after that. We are going to put him on prophylactic Lovenox 24 hours after surgery. I think it is too aggressive to put him on full-strength Lovenox right after knee surgery like this. 2. Pain control, doing pretty well with current pain regimen. 3. Physical therapy, PT and OT. Weight bear as tolerated. Right total knee protocol. 4. Atrial fibrillation. Cardiology is following. Heart rate seems controlled. 5. Disposition is planning to be discharged to home with some home health once adequately recovered.
[2018-04-29] MEDS: TRAMADOL HCL 50 MG TABLET PO PRN ×3 (09:52→19:36)
--- NOTE | 2018-04-29 10:11 | Cardiology Progress Note ---
Date of Service April 29, 2018 Assessment & Plan (1) Chronic atrial fibrillation: Patient with history of chronic atrial fibrillation. His rates were mildly elevated with his evening meal last night, however much improved overnight last night and this morning and he has received his typical home medications including diltiazem, digoxin, and metoprolol. The patient describes no subjective symptoms relative to the atrial fibrillation. At baseline he states that he is able to mow his grass to any edges with a push mower, and he does some light snow shoveling as well. He follows with cardiology at [facility] and he describes having been admitted for a trial of antiarrhythmic therapy with dofetilide last December, but this medication was ineffective and he reverted back to sinus rhythm and has been rate controlled. Yesterday the patient told me that he has a remote history of a stroke in 2009. 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 In terms of stroke prophylaxis, the patient does have risk factors of increased risk of cardioembolic stroke as he is in chronic atrial fibrillation, is 73 years old and has a prior stroke (although this was a hemorrhagic stroke per his recollection) not a cardioembolic stroke. The patient's anticoagulation is not managed by [facility] cardiology as an outpatient. It appears it is supervised by his primary care physician with the help of the [facility] anticoagulation clinic. Due to his stroke risk, and he was bridged with full anticoagulation dose Lovenox 100 mg subcu every 12 hours preoperatively with last dose 24 hours prior to surgery. As outlined in my note yesterday, reading the plan from the outpatient pharmacy note dated 04/14/18, the documented previous plan of care was for the patient to resume full anticoagulation dose Lovenox, 100 mg of subcutaneous every 12 hours on 04/29/18 at 8 PM which would be tonight. Per progress note today, Dr. Lo expressed concerns of bleeding risk given the patient's fresh knee surgery, and of course I agree that we need to weigh the potential thrombotic risk from a venous thromboembolic standpoint and cardioembolic stroke standpoint with his atrial fibrillation against the bleeding risk. Will proceed with plan to get the patient back on his Coumadin at a therapeutic INR range of 2-3. His INR is 1.1 today. The orthopedic service has already ordered 10 mg of Coumadin which was administered yesterday postoperatively, and 5 mg for today. Patient has a preexistent plan in place for 2 time per week INR readings to be performed at [facility] next week with results the [facility] anticoagulation clinic. Orthopedics recommends lowering the Lovenox dose to 30 mg every 12 hours to reduce risk of postoperative bleeding. I think this is reasonable, although it does come at a potential increased risk of stroke while he is subtherapeutic. His prior stroke was noted to be a hemorrhagic stroke however which also serves an additional motivator to be cautious with his anticoagulation. I believe his home Lovenox supply that he already has is for the 100 mg prefilled syringes, and therefore he would need to have a new prescription for the 30 mg syringes for discharge tomorrow. (2) Status post right knee replacement: Patient is proceeding as planned. He is in good spirits and his pain is controlled. DVT prophylaxis plan as outlined above. Dr Ravi is rounding for our service tomorrow, Please call with questions or concerns. As noted pt's primary cardiology provider outside the hospital is [facility] [place] and pt plans to maintain ongoing follow up there. Subjective Chief complaint: Follow-up chronic atrial fibrillation, status post right total knee replacement Subjective: Patient comfortable. He slept well overnight last night. Telemetry reveals atrial fibrillation with relatively well-controlled ventricular rates in the range of 90-100 bpm. There is a 2-second pause noted this morning at 2:53 AM which is not felt to be of clinical significance. Physical Exam Vital Signs (Past 24 Hours): Last Vital Signs Temp 36.7 C 04/29/18 07:02 Pulse 91 H 04/29/18 07:02 Resp 16 04/29/18 07:02 BP 108/62 04/29/18 07:02 Pulse Ox 95 04/29/18 07:02 Physical Exam: General: no acute distress and stated age Eyes: conjunctiva are pink and non-injected, sclera clear Neck: normal jugular venous pulse, no hepatojugular reflux Chest: normal shape and normal respiratory effort Lungs: clear to auscultation and percussion Cardiac Exam: -Irregular rhythm, no murmurs Abdomen: abdomen soft, non-tender, no abnormal masses and no hepatosplenomegaly Extremities: no edema and no cyanosis, right leg dressed, bilateral sequential pneumatic compression devices in place Neuro:awake, coversant, follows commands, no focal motor deficits Psych: appropriate affect and insight. Results & Data Laboratory Results Coagulation 04/29/18 Range/Units 05:44 PT 11.5 (9.0-12.0) Seconds CBC 04/29/18 Range/Units 05:44 WBC 12.70 H (4.8-10.8) K/uL RBC 4.05 L (4.7-6.1) M/uL Hgb 12.0 L (14.0-18.0) g/dL Hct 35.3 L (42-52) % Plt Count 203 (130-400) K/uL Comprehensive Metabolic Panel 04/29/18 Range/Units 05:44 Sodium 141 (136-145) mmol/L Potassium 4.3 (3.5-5.1) mmol/L Chloride 109 H (98-107) mmol/L Carbon Dioxide 29 (21-32) mmol/L BUN 18 (7-18) mg/dl Creatinine 1.06 (0.6-1.4) mg/dl Glucose 143 H (70-99) mg/dl Calcium 7.4 L (8.5-10.1) mg/dl Intake and Output 04/28/18 04/29/18 04/29/18 22:59 06:59 14:59 Intake Total 460 / 3498.333 1338.333 / 3498.333 1000 / 1000 Output Total 400 / 735 325 / 735 Balance 60 / 2763.333 1013.333 / 2763.333 1000 / 1000 Intake: IV 220 / 1778.333 858.333 / 1185.207 0264 / 1000 Nss 1000ML 1,000 ml @ 125 mls/ 858.333 / 155.887 6814 / 1000 hr IV .Q8H YAS Rx#:[id number] Cyklokapron 1,000 mg In Sodium 220 / 220 Chloride 100 ml @ 660 mls/hr IV Q6H YAS Rx#:[id number] Oral 240 / 720 480 / 720 Output: Urine 400 / 725 325 / 725 Other: Weight 100.4 kg Medications Administered Current Inpatient Medications Acetaminophen (Tylenol) 1,000 mg PO Q8 YAS Stop: 05/28/18 15:36 Last Admin: 04/29/18 05:39 Dose: 1,000 mg Documented by: Al Hydrox/Mg Hydrox/Simethicone (Maalox) 15 ml PO Q4H PRN PRN Reason: Heartburn Stop: 05/28/18 15:36 Ascorbic Acid (Vitamin C) 500 mg PO BIDM YAS Stop: 05/28/18 16:59 Last Admin: 04/29/18 08:24 Dose: 500 mg Documented by: Atorvastatin Calcium (Lipitor) 40 mg PO QAM YAS Stop: 05/29/18 08:59 Last Admin: 04/29/18 08:29 Dose: 40 mg Documented by: Bisacodyl (Dulcolax) 10 mg MT Q6H PRN PRN Reason: Constipation Stop: 05/28/18 15:36 Dextrose (Dextrose 50%) 25 - 50 ml IV UD PRN; Protocol PRN Reason: Hypoglycemia Protocol Stop: 05/28/18 15:36 Dextrose (Dextrose 50%) 25 - 50 ml IV UD PRN; Protocol PRN Reason: Hypoglycemia Protocol Stop: 05/28/18 17:14 Digoxin (Lanoxin) 0.125 mg PO DAILY@1600 [facility] Stop: 05/29/18 15:59 Diltiazem HCl (Tiazac) 240 mg PO QPM YAS Stop: 05/28/18 20:59 Last Admin: 04/28/18 20:13 Dose: 240 mg Documented by: Docusate Sodium (Colace) 100 mg PO BID [facility] Stop: 05/28/18 20:59 Last Admin: 04/29/18 08:25 Dose: 100 mg Documented by: Enoxaparin Sodium (Lovenox) 30 mg SQ Q12H [facility] Stop: 05/29/18 17:59 Ferrous Gluconate (Ferrous Gluconate) 324 mg PO BIDM [facility] Stop: 05/28/18 16:59 Last Admin: 04/29/18 08:23 Dose: 324 mg Documented by: Furosemide (Lasix) 20 mg PO QAM [facility] Stop: 05/29/18 08:59 Last Admin: 04/29/18 08:25 Dose: 20 mg Documented by: Glucagon (Glucagen) 1 mg SQ UD PRN; Protocol PRN Reason: Hypoglycemia Protocol Stop: 05/28/18 15:36 Glucagon (Glucagen) 1 mg SQ UD PRN; Protocol PRN Reason: Hypoglycemia Protocol Stop: 05/28/18 17:14 Glucose (Glucose 40%) 15 - 30 gm PO UD PRN; Protocol PRN Reason: Hypoglycemia Protocol Stop: 05/28/18 15:36 Glucose (Dex4 Glucose) 4 - 8 tabs PO UD PRN; Protocol PRN Reason: Hypoglycemia Protocol Stop: 05/28/18 15:36 Glucose (Glucose 40%) 15 - 30 gm PO UD PRN; Protocol PRN Reason: Hypoglycemia Protocol Stop: 05/28/18 17:14 Glucose (Dex4 Glucose) 4 - 8 tabs PO UD PRN; Protocol PRN Reason: Hypoglycemia Protocol Stop: 05/28/18 17:14 Hydromorphone HCl (Dilaudid) 0.5 mg IV Q4H PRN PRN Reason: Pain Stop: 05/12/18 15:36 Insulin Aspart (Novolog Flexpen) 0 units SC ACHS [facility] Stop: 05/28/18 17:14 Last Admin: 04/29/18 08:34 Dose: 5 units Documented by: Ketorolac Tromethamine (Toradol) 15 mg IV Q6H [facility] Stop: 04/29/18 11:01 Last Admin: 04/29/18 05:38 Dose: 15 mg Documented by: Levothyroxine Sodium (Synthroid) 75 mcg PO DAILYBB [facility] Stop: 05/29/18 06:29 Last Admin: 04/29/18 05:38 Dose: 75 mcg Documented by: Lisinopril (Zestril) 40 mg PO QAM [facility] Stop: 05/29/18 08:59 Last Admin: 04/29/18 08:24 Dose: 40 mg Documented by: Loratadine (Claritin) 10 mg PO DAILY PRN PRN Reason: allergies Stop: 05/28/18 15:36 Magnesium Hydroxide (Milk Of Magnesia) 30 ml PO Q6H PRN PRN Reason: Constipation Stop: 05/28/18 15:36 Metoclopramide HCl (Reglan) 10 mg IV Q6H PRN PRN Reason: Nausea And Vomiting Stop: 05/28/18 15:36 Metoprolol Tartrate (Lopressor) 12.5 mg PO BID [facility] Stop: 05/28/18 20:59 Last Admin: 04/29/18 08:29 Dose: 12.5 mg Documented by: Miscellaneous (Carbohydrates For Hypoglycemia) 15 - 30 gm PO UD PRN PRN Reason: Hypoglycemia Treatment Stop: 05/28/18 15:36 Miscellaneous (Carbohydrates For Hypoglycemia) 15 - 30 gm PO UD PRN PRN Reason: Hypoglycemia Treatment Stop: 05/28/18 17:14 Miscellaneous Information (Consult Glycemic Management Pharmacy) 1 ea N/A UD PRN; Protocol PRN Reason: Consult Stop: 05/29/18 06:07 Multivitamins (Multivitamin Tab) 1 tab PO QAM [facility] Stop: 05/29/18 08:59 Last Admin: 04/29/18 08:24 Dose: 1 tab Documented by: Naloxone HCl (Narcan) 0.1 mg IV Q5M PRN PRN Reason: Oversedation/Resp Depression Stop: 05/28/18 15:36 Ondansetron HCl (Zofran) 4 mg IV Q6H PRN PRN Reason: Nausea And Vomiting Stop: 05/28/18 15:36 Sennosides (Senokot) 17.2 mg PO HS [facility] Stop: 05/28/18 20:59 Last Admin: 04/28/18 20:13 Dose: 17.2 mg Documented by: Tamsulosin HCl (Flomax) 0.4 mg PO QAM PRN PRN Reason: unable to void Stop: 05/28/18 15:36 Tramadol HCl (Ultram) 50 - 100 mg PO Q4H PRN PRN Reason: Pain Stop: 05/28/18 15:36 Last Admin: 04/29/18 09:52 Dose: 50 mg Documented by: Warfarin Sodium (Coumadin) 7.5 mg PO DAILY@1600 [facility] Stop: 04/29/18 16:01 Warfarin Sodium (Coumadin) 5 mg PO DAILY@1600 [facility] Stop: 05/30/18 15:59
--- NOTE | 2018-04-29 13:30 | Pharmacy Report ---
Glycemic Control Consultation - Date of Service April 29, 2018 - Scope Scope: Glycemic Pharmacist consulted by Dr Lo on 04/28 for glycemic control and to write orders per [facility] inpatient glycemic control protocol - Objective Weight: 100.4 kg Accuchecks BSG (last 24hrs): 04/28/18 04/28/18 04/28/18 13:23 16:35 20:02 Glucose POC Glucose 127 H 193 H 298 H 04/29/18 04/29/18 04/29/18 00:10 04:01 05:44 Glucose 143 H POC Glucose 201 H 154 H 04/29/18 04/29/18 07:38 11:25 Glucose POC Glucose 139 H 200 H Laboratory Data (last 24hrs): 04/29/18 05:44 Potassium 4.3 Carbon Dioxide 29 Anion Gap 3.0 Creatinine 1.06 Est Cr Clr Drug Dosing 71.5 HbA1c: Hemoglobin A1c 6.8 % (4.5-5.6) H 04/11/18 11:34 - Recent Pertinent Medications Outpatient Anti-diabetic Regimen: * Metformin 500 mg BID * A1c = 6.8 % 04/11/18 The patient is currently receiving: * Basal insulin: Lantus 15 units x 1 * Correctional Insulin: Novolog Correction per scale ACHS Goal Range: Low 110 mg/dL - High 140 mg/dL Correction Factor: 25 mg/dL/unit * Prandial insulin: Per carb ratio of 1 unit per 8 grams CHO consumed * Oral Agents: Risk Factors for Insulin Resistance: * Steroids: dexamethasone 4 mg IV? * Recent Surgery: POD #1 * Diet: T2DM - Assessment & Plan Assessment & Plan: ASSESSMENT: * Patient admitted following total knee replacement, admitted to tele after tachycardia/A fib. in recovery * Dexemethasone pulled from omni, administration not documented * Patient to be transferred off tele today. * BSGs ranging from 143-298 in last 24 hours * Tighten CF/CR; add lantus scale for PM PLAN FOR INPATIENT GLYCEMIC CONTROL: * Holding outpatient oral diabetes medications * Basal insulin * Lantus 12 units this AM * 10 units BSG <140 * 15 units BSG 140-250 * 20 units BSG >250 * Bolus insulin * NovoLog per scale ACHS or Q6hrs while NPO * Goal Range: Low 110 mg/dL - High 140 mg/dL * Correction Factor: 20 mg/dL/unit * Nutritional / Prandial insulin per carb ratio of 1 unit per 7 grams CHO consumed * Please note that the plan above was derived based on current level of insulin resistance and hospital stress. These recommendations are appropriate for inpatient admission only. Plan of care upon discharge will need to be reassessed to avoid potential outpatient hypo/hyperglycemia. Thank you.
[2018-04-29] MEDS ORDERED: WARFARIN SOD 7.5 MG TAB PO ONE (16:00)
[2018-04-29] MEDS ORDERED: DIGOXIN 0.125 MG TAB PO SCH (16:00)
[2018-04-29] MEDS: ENOXAPARIN INJ 30 MG/0.3 ML SYR SQ SCH (18:11)
[2018-04-29] MEDS ORDERED: INSULIN GLARGINE SOLOSTAR 100 UNITS/ML 3 ML PEN SC ONE (21:00)
[2018-04-29] MEDS: SENNA 8.6 MG TAB PO SCH (21:11)
[2018-04-29] MEDS: dilTIAZem ER 120 MG CAPCR PO SCH (21:12)
[2018-04-29] MEDS: HYDROmorphone INJ 0.5 MG/0.5 ML SYR IV PRN (23:43)
[2018-04-30] MEDS: TRAMADOL HCL 50 MG TABLET PO PRN ×2 (02:54→11:25)
[2018-04-30] MEDS: LEVOTHYROXINE SODIUM 75 MCG TABLET PO SCH (05:52)
[2018-04-30] MEDS: ACETAMINOPHEN 500 MG TAB PO SCH (05:52)
[2018-04-30] MEDS: ENOXAPARIN INJ 30 MG/0.3 ML SYR SQ SCH (05:52)
[2018-04-30 07:19] LABS: INR 1.5 (0.9-1.1); Prothrombin Time 15.3 Seconds (9.0-12.0)
[2018-04-30] MEDS: INSULIN ASPART 100 UNITS/ML 3 ML PEN SC SCH (08:10)
[2018-04-30] MEDS: HYDROmorphone INJ 0.5 MG/0.5 ML SYR IV PRN (08:14)
[2018-04-30] MEDS: MULTIVITAMIN TAB PO SCH (08:15)
[2018-04-30] MEDS: ATORVASTATIN 40 MG TAB PO SCH (08:15)
[2018-04-30] MEDS: METOPROLOL TARTRATE 25 MG TAB PO SCH (08:15)
[2018-04-30] MEDS: FUROSEMIDE 20 MG TAB PO SCH (08:16)
[2018-04-30] MEDS: DOCUSATE SODIUM 100 MG CAP PO SCH (08:16)
[2018-04-30] MEDS: FERROUS GLUCONATE 324 MG TAB PO SCH (08:16)
[2018-04-30] MEDS: LISINOPRIL 40 MG TAB PO SCH (08:16)
[2018-04-30] MEDS: ASCORBIC ACID 500 MG TAB PO SCH (08:16)
[2018-04-30] MEDS ORDERED: INSULIN GLARGINE SOLOSTAR 100 UNITS/ML 3 ML PEN SC SCH (09:00)
[2018-04-30] MEDS ORDERED: WARFARIN SOD 5 MG TAB PO SCH (16:00)
--- NOTE | 2018-05-02 07:56 | Progress Note ---
DATE: 04/30/2018 SUBJECTIVE: Lukas is a 73-year-old male postop day #2 from a right total knee arthroplasty. He is doing very well in the short term. Pain is very well controlled. He has been up and ambulating without difficulty. Denies any chest pain or shortness of breath. OBJECTIVE: VITAL SIGNS: Today, he is 138/79 for blood pressure, pulse is 87, respiratory rate is 16, his temperature is 36.8 degrees, his O2 sats are 94% on room air. GENERAL: Physical examination reveals a 73-year-old male who is very comfortable at bedside today. EXTREMITIES: Examination reveals the dressing to be clean, dry and intact. He is able to dorsiflex and plantarflex his right foot appropriately. He is neurologically intact. LABORATORY DATA: His PT is 15.3 seconds. His INR is 1.5. His current hemoglobin is 12, hematocrit 35.3, white blood cell count is 12.7. ASSESSMENT: This is a 73-year-old male postoperative day 2 from a total right knee arthroplasty. He is doing very well. His pain is very well controlled. He is neurologically intact. No signs of any deep vein thromboses. PLAN: 1. At this time, continue with DVT prophylaxis including thigh-high TEDs, SCDs. No aspirin. Continue with his Coumadin regimen which we started back from Lovenox yesterday. 2. PT/OT. Continue to be weightbearing as tolerated. 3. We are going to discharge him to home today with home health services. Follow up in the office in 10-14 days postoperatively for staple removal and evaluation.
--- NOTE | 2018-05-02 08:43 | Discharge Summary ---
Date of Service May 10, 2018 Discharge Data Consultations 04/28/18 14:41 Consult Cardiology Routine 04/28/18 15:37 Consult Case Management - Discharge Planning Routine Procedures Performed Operation Date: 04/28/18 10:40 Actual Procedures p Right Total Knee Replacement(Right) - Desmond Lo MD
--- NOTE | 2018-05-08 22:44 | Discharge Summary ---
ADMITTING PHYSICIAN AND SURGEON: Desmond Lo MD ADMITTING DIAGNOSIS: Right knee degenerative joint disease. SURGERY PERFORMED: Right total knee arthroplasty. SECONDARY DIAGNOSES: Atrial fibrillation, elevated cholesterol, hypertension, history of stroke, diabetes and hypothyroidism. CONSULTS: [facility]iology Service for postoperative atrial fibrillation. HISTORY AND PHYSICAL EXAMINATION: Well documented in the patient's chart. HOSPITAL COURSE: The patient was admitted on 04/28/2018, underwent total knee arthroplasty, tolerated the procedure well. There were no complications. He did have some rapid atrial fibrillation postoperatively. He was admitted to Telemetry initially postoperatively and followed by the Cardiology Service. On postoperative day 1, he was transferred to the Orthopedic Floor for further care. He was given Ancef for antibiotic prophylaxis, CARA stockings and sequential compression devices, Coumadin and Lovenox for deep venous thrombosis prophylaxis. Hemoglobin, hematocrit and vital signs were monitored during his hospital stay and remained stable. He did not require any blood transfusions. There were no complications during his hospital stay. By postoperative day 2, he was tolerating a diabetic diet. Pain was controlled with oral pain medicine. He is participating in physical therapy. On postoperative day 2, he was discharged home, set up with Home Health Services. He was given printed discharge instructions including new prescriptions for extra strength Tylenol and tramadol. Continue his home medications including Coumadin. Lovenox was discontinued. He was told to stop Percocet as well. Continue physical therapy, weightbearing as tolerated, CARA stockings and follow up approximately 2 weeks postoperatively or sooner if there are any problems or concerns.
== END 2018-04-30 11:37 | disposition home health service (06) | DRG 470 ==
LOC: ASU 08:37 → 2E 14:41 → 3N 04-29 13:47